=== PATIENT | female | born 1975 | race Caucasian/White ===

== ENCOUNTER → 2019-06-08 08:39 | Outpatient (CLI) | payer OTHER, MEDICAID, SELFPAY ==
--- NOTE | 2019-06-08 | DI.MRI.S_ITS ---
PROCEDURE: MR THORACIC SPINE WO CON INDICATIONS: THORACIC SPINE PAIN TECHNIQUE: Noncontrast sagittal T1 spine echo and T2 fast spin echo, sagittal STIR, axial T1 and T2 fast spin echo through the thoracic spine. COMPARISON: [facility], THORACIC SPINE 2 VIEWS, 10/15/2011, 13:07. FINDINGS: Image quality: Excellent. Alignment and Curvature: There is normal bony alignment. Bone Marrow: Marrow is of normal overall signal. A small intraosseous hemangioma is noted in T6. No acute vertebral body compression fractures. Spinal Cord: Visualized spinal cord is normal in size and signal. Paraspinous Soft Tissues: No paravertebral masses. Miscellaneous: On axial images, central canal and foramina appear widely patent at all scanned levels. IMPRESSION: Normal thoracic spine MRI exam. Dictated by: Paddy Rome M.D. on 06/08/2019 at 10:54 Approved by: Paddy Rome M.D. on 06/08/2019 at 17:14
== END ==
PROVIDERS: PCP Physician Assistant; Visit Provider Physician Assistant
DX: M54.6 Pain in thoracic spine (principal)
CPT/HCPCS: 72146

== ENCOUNTER → 2019-07-05 15:24 | Outpatient (CLI) | payer OTHER, MEDICAID, SELFPAY ==
--- NOTE | 2019-07-05 | DI.MG.S_ITS ---
BILATERAL DIGITAL SCREENING MAMMOGRAM 3D/2D WITH CAD: 07/05/2019 CLINICAL: Baseline exam. Routine screening. No prior exams were available for comparison. The tissue of both breasts is extremely dense, which lowers the sensitivity of mammography. Current study was also evaluated with a Computer Aided Detection (CAD) system. No significant masses, calcifications, or other findings are seen in either breast. IMPRESSION: NEGATIVE There is no mammographic evidence of malignancy. A 1 year screening mammogram is recommended. This exam was interpreted at Station ID: [id number]. NOTE: For mammograms, a report in lay terms will be sent to the patient. Approximately 15% of breast malignancies will not be visualized mammographically. In the management of a palpable breast mass, a negative mammogram must not discourage biopsy of a clinically suspicious lesion. Electronically Signed By: Edgard kennedy/ruth:07/05/2019 16:09:45 letter sent: Normal Exam ACR BI-RADS Category 1: Negative [id number]
== END ==
PROVIDERS: PCP Physician Assistant; Visit Provider Physician Assistant
DX: Z12.31 Encounter for screening mammogram for malignant neoplasm of breast (principal)
CPT/HCPCS: 77063; 77067

== ENCOUNTER 2020-01-06 11:15 | Outpatient (RCR) | payer OTHER, MEDICAID, SELFPAY ==
--- NOTE | 2019-10-20 17:16 | PT.OIE ---
Current Diagnoses Pain in thoracic spine (10/20/19) Past Medical History (Last Reviewed 07/02/19 @ 19:19 by Ever Flannery MD) Asthma (Chronic) Past Surgical History (Last Reviewed 07/02/19 @ 19:19 by Ever Flannery MD) History of third molar tooth extraction (Resolved) History of toe surgery (Resolved) Visit Care Team Role Provider Type Thelma Burton PA-C Attending Provider Advanced Prepress Operator Primary Care Provider Specialty: Internal Medicine Address: [address] [place] [address], [facility] Email: [email or web address] Initial Evaluation PT-OP-A Visit Information Start: 10/24/19 21:27 Freq: Status: Active Protocol: Document 10/20/19 10:30 [facility] (Rec: 10/24/19 21:29 [facility] [email or web address]) Out-Patient Physical Therapy Visit Information Visit Information Visit Type Initial Evaluation Visit Start Time 10:30 Visit Stop Time 11:15 Total Visit Minutes 45 Visit Number 1 Evaluation Information Evaluation Date 10/20/19 PT-OP-B Current Condition Start: 10/24/19 21:27 Freq: Status: Active Protocol: Document 10/20/19 10:30 [facility] (Rec: 10/26/19 09:38 [facility] [email or web address]) Current Condition History of Current Condition Onset Date 10 years Current Complaints left sided chronic thoracic pain History of Current Condition Alcira presents to PT with symptoms of left sided thoracic pain that has been ongoing for 10 years. Alcira reports 13 years ago she had a snowboarding accident in which her back extended backwards at the thoracic region and her rib cage was out of alignment. She saw chiropractic at that time and this corrected things. She is not sure if her chronic left sided thoracic pain is due to this. Alcira reports the pain changes in intensity but is there daily. She does chiropractic and massage and this helps a great deal but never fully gets rid of her pain. She has two children ages 2 and 4. She did have rib cage pain during her pregnancies. Alcira works out at [employer] and has a history of asthma which [facility] takes medication for. All other Past medical history is negative Prior Treatments and Tests A MRI has been taken of the thoracic spine and is negative Treatment Goals Patient/Caregiver Goals to reduce c/o thoracic pain and muscle tightness PT-OP-F Manual Assessment Start: 10/24/19 21:27 Freq: Status: Active Protocol: Document 10/20/19 10:30 [facility] (Rec: 10/26/19 09:38 [facility] [email or web address]) Manual Assessments Soft Tissue Assessment Soft Tissue Mobility Assessment tightness and decreased flexibility of the left quadratus lumborum, lumbar paraspinals L >R, left iliopsoas, piriformis, and quad tightness Joint Mobility Assessment Joint Mobility Assessment Left SI joint dysfunction PT-OP-J Posture/Palpation/Skin Start: 10/24/19 21:27 Freq: Status: Active Protocol: Document 10/20/19 10:30 [facility] (Rec: 10/26/19 09:38 [facility] [email or web address]) Palpation Assessment Location left PSIS Palpation Location tenderness left PSIS Palpation Findings Tenderness left quad Palpation Location left quad Palpation Findings Soft Tissue Tightness,Muscle Guarding left iliopsoas Palpation Location left iliopsoas Palpation Findings Soft Tissue Tightness,Spasm left QL Palpation Location left QL Palpation Findings Soft Tissue Tightness,Muscle Guarding PT-OP-K Range of Motion Start: 10/24/19 21:27 Freq: Status: Active Protocol: Document 10/20/19 10:30 [facility] (Rec: 10/26/19 09:38 [facility] [email or web address]) Lumbar Spine Range of Motion Lumbar Spine Active Flexion 60 Lateral Flexion Left 10 Lateral Flexion Right 15 ROM Limitations Soft Tissue Tightness Comments limited lumbar flexion due to c/p left sided tightness, has difficulty initiating lumbar flexion, decreased left sided sidebending due to muscle restrictions PT-OP-Q Treatments Start: 10/24/19 21:27 Freq: Status: Active Protocol: Document 10/20/19 10:30 [facility] (Rec: 10/26/19 09:38 [facility] [email or web address]) Therapeutic Exercises Other Exercises iliopsoas stretch in kiara test position Other Exercise Name iliopsoas stretch Side left Reps/Minutes hold 1-2 min cat cow and sidebends Other Exercise Name cat cow and sidebends Side bilateral Reps/Minutes x 10 each reddy pose Other Exercise Name reddy pose Side bilateral Reps/Minutes 1-2 min Comments center, left, and right PT-OP-T Assessment and Plan Start: 10/24/19 21:27 Freq: Status: Active Protocol: Document 10/20/19 10:30 [facility] (Rec: 10/26/19 09:38 [facility] [email or web address]) Physical Therapy Assessment Rehab Potential Rehabilitation Potential Excellent Evaluation Complexity Number of Personal Factors/Comorbidities 0 Number of Body Systems Impaired 1-2 Clinical Presentation at Evaluation Stable Impairments Impairments Functional Activities,Pain, Posture,ROM,Soft Tissue Mobility Goals Three Impairment Left sided thoracic pain that is constant in nature but varies in intensity Sorting Supervisor Goal (LTG) Alcira has a overall reduction in her thoracic pain levels with addition of a stretching program to her Home exercise program Two Impairment decreased thoracic and lumbar ROM [facility] Goal (LTG) Alcira demonstrated improved segmental spinal movement. She no longer has pain with lumbar flexion and sidebending One Impairment Tightness of the iliopsoas and quadratus lumborum on the left Short Term Goal (STG) Alcira is educated in a home flexibility program for the hips and spine to address areas of tightness that may be contributing to her pain STG Duration 4 weeks [facility] Goal (LTG) Alcira demonstrates improved flexibility of both the hip on the left and lateral quadratus lumborum musculature LTG Duration 8 weeks Assessment Summary Assessment Alcira presents to Physical therpay today with symptoms of chronic left sided thoracic spine pain that has been present for the past 10 years. She does report a snow boarding accident 13 years ago in which her thoracic spine was severly extended during her fall. She saw chiroproactic following this for rib cage pain and felt this corrected the symptoms. She is not sure if this caused any of her thoracic pain but mentions it today incase it has significance. Her recent MRI of the thoracic spine is normal. She has regular massage therapy and personal care aide and feels both of these help her but she is not able to fully eliminate her pain and it is with her daily. With evaluation today Alcira presents with tightness of the left sided iliopsoas, piriformis, and quadratus lumborum. She has difficulty with lumbar flexion and sidebending and is limited in her ROM with both of those movements. Her strength of her core is good with testing. She also c/o left SI pain that she feels is related to her thoracic pain. Treatment will focus on a stretching program especially for the iliopsoas due to the attachments on the spine close to where Alcira's pain is. She is a good candidate for PT . Physical Therapy Plan Frequency and Duration Frequency of Treatment 2x/Week Duration of Treatment 8 Plan of Care Start Date 10/20/19 Plan of Care End Date 12/15/19 Therapeutic Interventions Therapeutic Interventions Home Exercise Program,Manual Therapy,Neuromuscular Re- education,Patient/Caregiver Education,Self-Care/Home Management,Soft Tissue Mobilization,Therapeutic Exercises Next Visit Focus/Plan Next Note Type Treatment Note Next Visit Plan review stretches given last visit and begin working on segmental spinal flexion exercises
--- NOTE | 2019-10-27 12:33 | PT.OTN ---
Current Diagnoses Pain in thoracic spine (10/27/19) Physical Therapy Treatment Note PT-OP-A Visit Information Start: 10/24/19 21:27 Freq: Status: Active Protocol: Document 10/27/19 12:18 [facility] (Rec: 10/27/19 12:33 [facility] [email or web address]) Out-Patient Physical Therapy Visit Information Visit Information Visit Type Treatment Note Visit Start Time 10:30 Visit Stop Time 11:15 Total Visit Minutes 45 Visit Number 2 PT-OP-B Current Condition Start: 10/24/19 21:27 Freq: Status: Active Protocol: Document 10/20/19 10:30 [facility] (Rec: 10/26/19 09:38 [facility] [email or web address]) Current Condition History of Current Condition Onset Date 10 years Current Complaints left sided chronic thoracic pain History of Current Condition Alcira presents to PT with symptoms of left sided thoracic pain that has been ongoing for 10 years. Alcira reports 13 years ago she had a snowboarding accident in which her back extended backwards at the thoracic region and her rib cage was out of alignment. She saw chiropractic at that time and this corrected things. She is not sure if her chronic left sided thoracic pain is due to this. Alcira reports the pain changes in intensity but is there daily. She does chiropractic and massage and this helps a great deal but never fully gets rid of her pain. She has two children ages 2 and 4. She did have rib cage pain during her pregnancies. Alcira works out at [employer] and has a history of asthma which [facility] takes medication for. All other Past medical history is negative Prior Treatments and Tests A MRI has been taken of the thoracic spine and is negative Treatment Goals Patient/Caregiver Goals to reduce c/o thoracic pain and muscle tightness PT-OP-C Subjective Start: 10/24/19 21:27 Freq: Status: Active Protocol: Document 10/27/19 12:18 [facility] (Rec: 10/27/19 12:33 [facility] [email or web address]) OP-PT Subjective Patient Comments Patient Comments pt reports it is difficult to get in the stretches daily PT-OP-F Manual Assessment Start: 10/24/19 21:27 Freq: Status: Active Protocol: Document 10/20/19 10:30 [facility] (Rec: 10/26/19 09:38 [facility] [email or web address]) Manual Assessments Soft Tissue Assessment Soft Tissue Mobility Assessment tightness and decreased flexibility of the left quadratus lumborum, lumbar paraspinals L >R, left iliopsoas, piriformis, and quad tightness Joint Mobility Assessment Joint Mobility Assessment Left SI joint dysfunction PT-OP-J Posture/Palpation/Skin Start: 10/24/19 21:27 Freq: Status: Active Protocol: Document 10/20/19 10:30 [facility] (Rec: 10/26/19 09:38 [facility] [email or web address]) Palpation Assessment Location left PSIS Palpation Location tenderness left PSIS Palpation Findings Tenderness left quad Palpation Location left quad Palpation Findings Soft Tissue Tightness,Muscle Guarding left iliopsoas Palpation Location left iliopsoas Palpation Findings Soft Tissue Tightness,Spasm left QL Palpation Location left QL Palpation Findings Soft Tissue Tightness,Muscle Guarding PT-OP-K Range of Motion Start: 10/24/19 21:27 Freq: Status: Active Protocol: Document 10/20/19 10:30 [facility] (Rec: 10/26/19 09:38 [facility] [email or web address]) Lumbar Spine Range of Motion Lumbar Spine Active Flexion 60 Lateral Flexion Left 10 Lateral Flexion Right 15 ROM Limitations Soft Tissue Tightness Comments limited lumbar flexion due to c/p left sided tightness, has difficulty initiating lumbar flexion, decreased left sided sidebending due to muscle restrictions PT-OP-Q Treatments Start: 10/24/19 21:27 Freq: Status: Active Protocol: Document 10/27/19 12:18 [facility] (Rec: 10/27/19 12:33 [facility] [email or web address]) Therapeutic Exercises Supine Exercises 1 Supine Exercise Name foam roll stretch Comments full roll for vertical position and 1/2 roll for horizontal position Other Exercises quadruped thoracic rotations Other Exercise Name quadruped thoracic rotations Reps/Minutes x 5 each modified down dog Other Exercise Name hands on mat table press back into down dog lunge Other Exercise Name low lunge for deep iliopsoas stretch 1/2 kneeling iliopsoas stretch Other Exercise Name 1/2 kneeling iliopsoas stretch Comments arms lifted and then sidebend to opp side triangle pose Other Exercise Name yoga triangle pose Reps/Minutes hold 30 sec each side iliopsoas stretch in kiara test position Other Exercise Name iliopsoas stretch Side bilateral Reps/Minutes hold 3-4 min Comments with manual release of the quad on the left cat cow and sidebends Other Exercise Name cat cow and sidebends Side bilateral Reps/Minutes x 10 each reddy pose Other Exercise Name reddy pose Side bilateral Reps/Minutes 1-2 min Comments center, left, and right PT-OP-T Assessment and Plan Start: 10/24/19 21:27 Freq: Status: Active Protocol: Document 10/27/19 12:18 [facility] (Rec: 10/27/19 12:33 [facility] [email or web address]) Physical Therapy Assessment Assessment Summary Assessment good tolerance for all stretches today, Alcira feels a great deal of tightness on the left quad in kiara test position with manual quad release. I hung out in this position for a bit to get her a good relaxation of the quad and iliopsoas. She reports feeling looser following treatment today. Physical Therapy Plan Frequency and Duration Frequency of Treatment 2x/Week Duration of Treatment 8 Plan of Care Start Date 10/20/19 Plan of Care End Date 12/15/19 Therapeutic Interventions Therapeutic Interventions Home Exercise Program,Manual Therapy,Neuromuscular Re- education,Patient/Caregiver Education,Self-Care/Home Management,Soft Tissue Mobilization,Therapeutic Exercises Next Visit Focus/Plan Next Note Type Treatment Note Next Visit Plan review stretches given last visit and HEP. Work on segmental felxion and opening up the QL and iliopsoas on the left side
--- NOTE | 2019-11-02 10:30 | PT.OTN ---
Current Diagnoses Pain in thoracic spine (11/02/19) Physical Therapy Treatment Note PT-OP-A Visit Information Start: 10/24/19 21:27 Freq: Status: Active Protocol: Document 11/02/19 09:48 SP (Rec: 11/02/19 11:44 SP [id number]) Out-Patient Physical Therapy Visit Information Visit Information Visit Type Treatment Note Visit Start Time 09:48 Visit Stop Time 10:30 Total Visit Minutes 42 Visit Number 3 Number of INFORMATION SYSTEMS SECURITY ANALYST Visits 1 PT-OP-B Current Condition Start: 10/24/19 21:27 Freq: Status: Active Protocol: Document 10/20/19 10:30 [facility] (Rec: 10/26/19 09:38 [facility] [email or web address]) Current Condition History of Current Condition Onset Date 10 years Current Complaints left sided chronic thoracic pain History of Current Condition Alcira presents to PT with symptoms of left sided thoracic pain that has been ongoing for 10 years. Alcira reports 13 years ago she had a snowboarding accident in which her back extended backwards at the thoracic region and her rib cage was out of alignment. She saw chiropractic at that time and this corrected things. She is not sure if her chronic left sided thoracic pain is due to this. Alcira reports the pain changes in intensity but is there daily. She does chiropractic and massage and this helps a great deal but never fully gets rid of her pain. She has two children ages 2 and 4. She did have rib cage pain during her pregnancies. Alcira works out at [employer] and has a history of asthma which [facility] takes medication for. All other Past medical history is negative Prior Treatments and Tests A MRI has been taken of the thoracic spine and is negative Treatment Goals Patient/Caregiver Goals to reduce c/o thoracic pain and muscle tightness PT-OP-C Subjective Start: 10/24/19 21:27 Freq: Status: Active Protocol: Document 11/02/19 09:48 SP (Rec: 11/02/19 11:44 SP [id number]) OP-PT Subjective Patient Comments Patient Comments Pt stated is trying to incorporate stretches daily while her little kids are occupied. Pt stated her L SI little more discomforting today moderate and front of L hip tight. PT-OP-F Manual Assessment Start: 10/24/19 21:27 Freq: Status: Active Protocol: Document 10/20/19 10:30 [facility] (Rec: 10/26/19 09:38 [facility] [email or web address]) Manual Assessments Soft Tissue Assessment Soft Tissue Mobility Assessment tightness and decreased flexibility of the left quadratus lumborum, lumbar paraspinals L >R, left iliopsoas, piriformis, and quad tightness Joint Mobility Assessment Joint Mobility Assessment Left SI joint dysfunction PT-OP-J Posture/Palpation/Skin Start: 10/24/19 21:27 Freq: Status: Active Protocol: Document 10/20/19 10:30 [facility] (Rec: 10/26/19 09:38 [facility] [email or web address]) Palpation Assessment Location left PSIS Palpation Location tenderness left PSIS Palpation Findings Tenderness left quad Palpation Location left quad Palpation Findings Soft Tissue Tightness,Muscle Guarding left iliopsoas Palpation Location left iliopsoas Palpation Findings Soft Tissue Tightness,Spasm left QL Palpation Location left QL Palpation Findings Soft Tissue Tightness,Muscle Guarding PT-OP-K Range of Motion Start: 10/24/19 21:27 Freq: Status: Active Protocol: Document 10/20/19 10:30 [facility] (Rec: 10/26/19 09:38 [facility] [email or web address]) Lumbar Spine Range of Motion Lumbar Spine Active Flexion 60 Lateral Flexion Left 10 Lateral Flexion Right 15 ROM Limitations Soft Tissue Tightness Comments limited lumbar flexion due to c/p left sided tightness, has difficulty initiating lumbar flexion, decreased left sided sidebending due to muscle restrictions PT-OP-Q Treatments Start: 10/24/19 21:27 Freq: Status: Active Protocol: Document 11/02/19 09:48 SP (Rec: 11/02/19 11:44 SP [id number]) Therapeutic Exercises Supine Exercises pelvic realignment exercises Supine Exercise Name hip add, pelvic lift, HS press Side bilateral Resistance self manual Equipment Used small ball Reps/Minutes 3 sec x5 each Comments see hand out in chart, cued slow mod contraction with pelvic relaxation Other Exercises quadruped thoracic rotations Other Exercise Name quadruped thoracic rotations Reps/Minutes x 5 each modified down dog Other Exercise Name hands on mat table press back into down dog lunge Other Exercise Name low lunge for deep iliopsoas stretch 1/2 kneeling iliopsoas stretch Other Exercise Name 1/2 kneeling iliopsoas stretch Comments arms lifted and then sidebend to opp side triangle pose Other Exercise Name yoga triangle pose Reps/Minutes hold 30 sec each side iliopsoas stretch in kiara test position Other Exercise Name iliopsoas stretch (supine) Side bilateral Reps/Minutes hold 3-4 min Comments with manual release of the quad on the left cat cow and sidebends Other Exercise Name cat cow and sidebends Side bilateral Reps/Minutes x 10 each reddy pose Other Exercise Name reddy pose Side bilateral Reps/Minutes 1-2 min Comments center, left, and right PT-OP-T Assessment and Plan Start: 10/24/19 21:27 Freq: Status: Active Protocol: Document 11/02/19 09:48 SP (Rec: 11/02/19 11:44 SP [id number]) Physical Therapy Assessment Goals Three Impairment Left sided thoracic pain that is constant in nature but varies in intensity [facility] Goal (LTG) Alcria has a overall reduction in her thoracic pain levels with addition of a stretching program to her Home exercise program Two Impairment decreased thoracic and lumbar ROM One Impairment Tightness of the iliopsoas and quadratus lumborum on the left Short Term Goal (STG) Alcira is educated in a home flexibility program for the hips and spine to address areas of tightness that may be contributing to her pain STG Duration 4 weeks [facility] Goal (LTG) Alcira demonstrates improved flexibility of both the hip on the left and lateral quadratus lumborum musculature LTG Duration 8 weeks Assessment Summary Assessment Pt had good tolerance to manual and stretches today. Pt stated feels like wants to pop her L hip/pelvis to relieve pressure. INFORMATION SYSTEMS SECURITY ANALYST added pelvic realignment exercises to decrease L SI tension reported with positive feedback helped decrease L SI discomfort very low end of tx. Physical Therapy Plan Frequency and Duration Frequency of Treatment 2x/Week Duration of Treatment 8 Plan of Care Start Date 10/20/19 Plan of Care End Date 12/15/19 Therapeutic Interventions Therapeutic Interventions Home Exercise Program,Manual Therapy,Neuromuscular Re- education,Patient/Caregiver Education,Self-Care/Home Management,Soft Tissue Mobilization,Therapeutic Exercises Next Visit Focus/Plan Next Note Type Treatment Note Next Visit Plan Assess added pelvic realignment exercises last tx as HEP. review rolling. Continue per PT POC: Work on segmental flexion and opening up the QL and iliopsoas on the left side.
--- NOTE | 2019-11-16 13:45 | PT.OTN ---
Current Diagnoses Pain in thoracic spine (11/16/19) Physical Therapy Treatment Note PT-OP-A Visit Information Start: 10/24/19 21:27 Freq: Status: Active Protocol: Document 11/16/19 13:05 SP (Rec: 11/16/19 13:51 SP [id number]) Out-Patient Physical Therapy Visit Information Visit Information Visit Type Treatment Note Visit Start Time 13:05 Visit Stop Time 13:45 Total Visit Minutes 40 Visit Number 4 Number of CHICKEN RAISER Visits 2 PT-OP-B Current Condition Start: 10/24/19 21:27 Freq: Status: Active Protocol: Document 10/20/19 10:30 [facility] (Rec: 10/26/19 09:38 [facility] [email or web address]) Current Condition History of Current Condition Onset Date 10 years Current Complaints left sided chronic thoracic pain History of Current Condition Alcira presents to PT with symptoms of left sided thoracic pain that has been ongoing for 10 years. Alcira reports 13 years ago she had a snowboarding accident in which her back extended backwards at the thoracic region and her rib cage was out of alignment. She saw chiropractic at that time and this corrected things. She is not sure if her chronic left sided thoracic pain is due to this. Alcira reports the pain changes in intensity but is there daily. She does chiropractic and massage and this helps a great deal but never fully gets rid of her pain. She has two children ages 2 and 4. She did have rib cage pain during her pregnancies. Alcira works out at [employer] and has a history of asthma which [facility] takes medication for. All other Past medical history is negative Prior Treatments and Tests A MRI has been taken of the thoracic spine and is negative Treatment Goals Patient/Caregiver Goals to reduce c/o thoracic pain and muscle tightness PT-OP-C Subjective Start: 10/24/19 21:27 Freq: Status: Active Protocol: Document 11/16/19 13:05 SP (Rec: 11/16/19 13:51 SP [id number]) OP-PT Subjective Patient Comments Patient Comments Pt stated her R L5- S1 area on L pretty tight and 2-3/10 pain, saw chiropractor and adjusted pelvis and felt better but still experiencing P LBP. PT-OP-F Manual Assessment Start: 10/24/19 21:27 Freq: Status: Active Protocol: Document 10/20/19 10:30 [facility] (Rec: 10/26/19 09:38 [facility] [email or web address]) Manual Assessments Soft Tissue Assessment Soft Tissue Mobility Assessment tightness and decreased flexibility of the left quadratus lumborum, lumbar paraspinals L >R, left iliopsoas, piriformis, and quad tightness Joint Mobility Assessment Joint Mobility Assessment Left SI joint dysfunction PT-OP-J Posture/Palpation/Skin Start: 10/24/19 21:27 Freq: Status: Active Protocol: Document 10/20/19 10:30 [facility] (Rec: 10/26/19 09:38 [facility] [email or web address]) Palpation Assessment Location left PSIS Palpation Location tenderness left PSIS Palpation Findings Tenderness left quad Palpation Location left quad Palpation Findings Soft Tissue Tightness,Muscle Guarding left iliopsoas Palpation Location left iliopsoas Palpation Findings Soft Tissue Tightness,Spasm left QL Palpation Location left QL Palpation Findings Soft Tissue Tightness,Muscle Guarding PT-OP-K Range of Motion Start: 10/24/19 21:27 Freq: Status: Active Protocol: Document 10/20/19 10:30 [facility] (Rec: 10/26/19 09:38 [facility] [email or web address]) Lumbar Spine Range of Motion Lumbar Spine Active Flexion 60 Lateral Flexion Left 10 Lateral Flexion Right 15 ROM Limitations Soft Tissue Tightness Comments limited lumbar flexion due to c/p left sided tightness, has difficulty initiating lumbar flexion, decreased left sided sidebending due to muscle restrictions PT-OP-Q Treatments Start: 10/24/19 21:27 Freq: Status: Active Protocol: Document 11/16/19 13:05 SP (Rec: 11/16/19 13:51 SP [id number]) Therapeutic Exercises Supine Exercises Jagdish stretch Side left Reps/Minutes 30 x3 pelvic realignment exercises Supine Exercise Name hip add, pelvic lift, HS press Side bilateral Resistance self manual Equipment Used small ball Reps/Minutes 3 sec x5 each Comments see hand out in chart, cued slow mod contraction with pelvic relaxation Sitting Exercises QL Side left Reps/Minutes 30 x3 Other Exercises TS roll and ext foam roller Other Exercise Name supine floor Equipment Used foam roller Reps/Minutes 1 min tennis ball roll LS Other Exercise Name standing Equipment Used at wall, Reps/Minutes 1 min to tolerance Manual Therapy Treatment Soft Tissue Mobilization L QL, ES, Psoas Mobilization Type Cross-Friction,Myofascial Release,Sustained Pressure Intensity/Depth Moderate Comments sidelying ql, ES hooklying psoas PT-OP-T Assessment and Plan Start: 10/24/19 21:27 Freq: Status: Active Protocol: Document 11/16/19 13:05 SP (Rec: 11/16/19 13:51 SP [id number]) Physical Therapy Assessment Goals Three Impairment Left sided thoracic pain that is constant in nature but varies in intensity Alf Goal (LTG) Alcira has a overall reduction in her thoracic pain levels with addition of a stretching program to her Home exercise program Two Impairment decreased thoracic and lumbar ROM One Impairment Tightness of the iliopsoas and quadratus lumborum on the left Short Term Goal (STG) Alcira is educated in a home flexibility program for the hips and spine to address areas of tightness that may be contributing to her pain STG Duration 4 weeks Alf Goal (LTG) Alcira demonstrates improved flexibility of both the hip on the left and lateral quadratus lumborum musculature LTG Duration 8 weeks Assessment Summary Assessment Pt responded well to manual and instruction on self manual using tennis ball and foam roller for decreased R LB tension/pain. Pt stated alot looser when leaving, helpful tools. Physical Therapy Plan Frequency and Duration Frequency of Treatment 2x/Week Duration of Treatment 8 Plan of Care Start Date 10/20/19 Plan of Care End Date 12/15/19 Therapeutic Interventions Therapeutic Interventions Home Exercise Program,Manual Therapy,Neuromuscular Re- education,Patient/Caregiver Education,Self-Care/Home Management,Soft Tissue Mobilization,Therapeutic Exercises Next Visit Focus/Plan Next Note Type Treatment Note Next Visit Plan Assess manual and TS/ LS self tennis ball/foam roller STMs and flexibility. Continue per PT POC: Work on segmental flexion and opening up the QL and iliopsoas on the left side.
--- NOTE | 2019-11-23 14:57 | PT.OTN ---
Current Diagnoses Pain in thoracic spine (11/23/19) Physical Therapy Treatment Note PT-OP-A Visit Information Start: 10/24/19 21:27 Freq: Status: Active Protocol: Document 11/23/19 14:44 [facility] (Rec: 11/23/19 14:57 [facility] [email or web address]) Out-Patient Physical Therapy Visit Information Visit Information Visit Type Treatment Note Visit Start Time 09:45 Visit Stop Time 10:30 Total Visit Minutes 45 Visit Number 5 Number of PLATE STACKER HAND Visits 3 PT-OP-B Current Condition Start: 10/24/19 21:27 Freq: Status: Active Protocol: Document 10/20/19 10:30 [facility] (Rec: 10/26/19 09:38 [facility] [email or web address]) Current Condition History of Current Condition Onset Date 10 years Current Complaints left sided chronic thoracic pain History of Current Condition Alcira presents to PT with symptoms of left sided thoracic pain that has been ongoing for 10 years. Alcira reports 13 years ago she had a snowboarding accident in which her back extended backwards at the thoracic region and her rib cage was out of alignment. She saw chiropractic at that time and this corrected things. She is not sure if her chronic left sided thoracic pain is due to this. Alcira reports the pain changes in intensity but is there daily. She does chiropractic and massage and this helps a great deal but never fully gets rid of her pain. She has two children ages 2 and 4. She did have rib cage pain during her pregnancies. Alcira works out at [employer] and has a history of asthma which [facility] takes medication for. All other Past medical history is negative Prior Treatments and Tests A MRI has been taken of the thoracic spine and is negative Treatment Goals Patient/Caregiver Goals to reduce c/o thoracic pain and muscle tightness PT-OP-C Subjective Start: 10/24/19 21:27 Freq: Status: Active Protocol: Document 11/23/19 14:44 [facility] (Rec: 11/23/19 14:57 [facility] [email or web address]) OP-PT Subjective Patient Comments Patient Comments Alcira reports she is doing a little better overall. The thoracic spine pain is lessening . She is feeling symptoms mainly now in Left her SI joint and lower back region PT-OP-F Manual Assessment Start: 10/24/19 21:27 Freq: Status: Active Protocol: Document 10/20/19 10:30 [facility] (Rec: 10/26/19 09:38 [facility] [email or web address]) Manual Assessments Soft Tissue Assessment Soft Tissue Mobility Assessment tightness and decreased flexibility of the left quadratus lumborum, lumbar paraspinals L >R, left iliopsoas, piriformis, and quad tightness Joint Mobility Assessment Joint Mobility Assessment Left SI joint dysfunction PT-OP-J Posture/Palpation/Skin Start: 10/24/19 21:27 Freq: Status: Active Protocol: Document 10/20/19 10:30 [facility] (Rec: 10/26/19 09:38 [facility] [email or web address]) Palpation Assessment Location left PSIS Palpation Location tenderness left PSIS Palpation Findings Tenderness left quad Palpation Location left quad Palpation Findings Soft Tissue Tightness,Muscle Guarding left iliopsoas Palpation Location left iliopsoas Palpation Findings Soft Tissue Tightness,Spasm left QL Palpation Location left QL Palpation Findings Soft Tissue Tightness,Muscle Guarding PT-OP-K Range of Motion Start: 10/24/19 21:27 Freq: Status: Active Protocol: Document 10/20/19 10:30 [facility] (Rec: 10/26/19 09:38 [facility] [email or web address]) Lumbar Spine Range of Motion Lumbar Spine Active Flexion 60 Lateral Flexion Left 10 Lateral Flexion Right 15 ROM Limitations Soft Tissue Tightness Comments limited lumbar flexion due to c/p left sided tightness, has difficulty initiating lumbar flexion, decreased left sided sidebending due to muscle restrictions PT-OP-Q Treatments Start: 10/24/19 21:27 Freq: Status: Active Protocol: Document 11/23/19 14:44 [facility] (Rec: 11/23/19 14:57 [facility] [email or web address]) Therapeutic Exercises Supine Exercises Jagdish stretch Side left Reps/Minutes 30 x3 Comments with manaul release of the psoas pelvic realignment exercises Supine Exercise Name hip add, pelvic lift, HS press Side bilateral Resistance self manual Equipment Used small ball Reps/Minutes 3 sec x5 each Comments reviewed pelvic alignment ex Other Exercises quadruped thoracic rotations Other Exercise Name quadruped thoracic rotations Reps/Minutes x 5 each 1/2 kneeling iliopsoas stretch Other Exercise Name 1/2 kneeling iliopsoas stretch Comments arms lifted and then sidebend to opp side triangle pose Other Exercise Name yoga triangle pose Reps/Minutes hold 30 sec each side cat cow and sidebends Other Exercise Name cat cow and sidebends Side bilateral Reps/Minutes x 10 each reddy pose Other Exercise Name reddy pose Side bilateral Reps/Minutes 1-2 min Comments center, left, and right Manual Therapy Treatment Soft Tissue Mobilization L QL, ES, Psoas Mobilization Type Cross-Friction,Myofascial Release,Sustained Pressure Intensity/Depth Moderate Comments sidelying ql, ES hooklying psoas Joint Mobilizations 1 Joint sacral mobilizations into counter nutation Comments MET into sacral counter nutation Manual Techniques 1 Type posterior glides for the left hip Comments to help take pressure off the left side of the sacrum PT-OP-T Assessment and Plan Start: 10/24/19 21:27 Freq: Status: Active Protocol: Document 11/23/19 14:44 [facility] (Rec: 11/23/19 14:57 [facility] [email or web address]) Physical Therapy Assessment Assessment Summary Assessment pt is doing better overall and noting small changes in her pain levels. She is still much tighter left iliopsoas as compared to the right. Worked on releasing the psoas at the proximal attachments to the spine today Physical Therapy Plan Frequency and Duration Frequency of Treatment 2x/Week Duration of Treatment 8 Plan of Care Start Date 10/20/19 Plan of Care End Date 12/15/19 Therapeutic Interventions Therapeutic Interventions Home Exercise Program,Manual Therapy,Neuromuscular Re- education,Patient/Caregiver Education,Self-Care/Home Management,Soft Tissue Mobilization,Therapeutic Exercises Next Visit Focus/Plan Next Note Type Treatment Note Next Visit Plan continue working on segmental flexion, left sided muscular restrictions and balancing out the SI joint
--- NOTE | 2019-12-07 11:06 | PT.OTN ---
Current Diagnoses Pain in thoracic spine (12/07/19) Physical Therapy Treatment Note PT-OP-A Visit Information Start: 10/24/19 21:27 Freq: Status: Active Protocol: Document 12/07/19 10:51 [facility] (Rec: 12/07/19 11:05 [facility] [email or web address]) Out-Patient Physical Therapy Visit Information Visit Information Visit Type Treatment Note Visit Start Time 09:07 Visit Stop Time 10:30 Total Visit Minutes 38 Visit Number 6 Number of CUSTOMER SERVICE ADVOCATE Visits 0 PT-OP-B Current Condition Start: 10/24/19 21:27 Freq: Status: Active Protocol: Document 10/20/19 10:30 [facility] (Rec: 10/26/19 09:38 [facility] [email or web address]) Current Condition History of Current Condition Onset Date 10 years Current Complaints left sided chronic thoracic pain History of Current Condition Alcira presents to PT with symptoms of left sided thoracic pain that has been ongoing for 10 years. Alcira reports 13 years ago she had a snowboarding accident in which her back extended backwards at the thoracic region and her rib cage was out of alignment. She saw chiropractic at that time and this corrected things. She is not sure if her chronic left sided thoracic pain is due to this. Alcira reports the pain changes in intensity but is there daily. She does chiropractic and massage and this helps a great deal but never fully gets rid of her pain. She has two children ages 2 and 4. She did have rib cage pain during her pregnancies. Alcira works out at [employer] and has a history of asthma which [facility] takes medication for. All other Past medical history is negative Prior Treatments and Tests A MRI has been taken of the thoracic spine and is negative Treatment Goals Patient/Caregiver Goals to reduce c/o thoracic pain and muscle tightness PT-OP-C Subjective Start: 10/24/19 21:27 Freq: Status: Active Protocol: Document 12/07/19 10:51 [facility] (Rec: 12/07/19 11:05 [facility] [email or web address]) OP-PT Subjective Patient Comments Patient Comments Pt reports she drove to [place] in a different car than she was used to. She notes her left SI was really sore by the time she got there. She had a chiropractic adjustment and this really helped. She then fell really hard snow boarding and hurt her left shoulder and back. She is doing better but still sore in her shoulder. She feels that the stretching has maybe aggravated her left hip PT-OP-F Manual Assessment Start: 10/24/19 21:27 Freq: Status: Active Protocol: Document 10/20/19 10:30 [facility] (Rec: 10/26/19 09:38 [facility] [email or web address]) Manual Assessments Soft Tissue Assessment Soft Tissue Mobility Assessment tightness and decreased flexibility of the left quadratus lumborum, lumbar paraspinals L >R, left iliopsoas, piriformis, and quad tightness Joint Mobility Assessment Joint Mobility Assessment Left SI joint dysfunction PT-OP-J Posture/Palpation/Skin Start: 10/24/19 21:27 Freq: Status: Active Protocol: Document 10/20/19 10:30 [facility] (Rec: 10/26/19 09:38 [facility] [email or web address]) Palpation Assessment Location left PSIS Palpation Location tenderness left PSIS Palpation Findings Tenderness left quad Palpation Location left quad Palpation Findings Soft Tissue Tightness,Muscle Guarding left iliopsoas Palpation Location left iliopsoas Palpation Findings Soft Tissue Tightness,Spasm left QL Palpation Location left QL Palpation Findings Soft Tissue Tightness,Muscle Guarding PT-OP-K Range of Motion Start: 10/24/19 21:27 Freq: Status: Active Protocol: Document 10/20/19 10:30 [facility] (Rec: 10/26/19 09:38 [facility] [email or web address]) Lumbar Spine Range of Motion Lumbar Spine Active Flexion 60 Lateral Flexion Left 10 Lateral Flexion Right 15 ROM Limitations Soft Tissue Tightness Comments limited lumbar flexion due to c/p left sided tightness, has difficulty initiating lumbar flexion, decreased left sided sidebending due to muscle restrictions PT-OP-Q Treatments Start: 10/24/19 21:27 Freq: Status: Active Protocol: Document 12/07/19 10:51 [facility] (Rec: 12/07/19 11:05 [facility] [email or web address]) Therapeutic Exercises Supine Exercises 2 Supine Exercise Name supine foam roll stretch both vertical and horizontal Other Exercises 1 Other Exercise Name self thoracic mobilization with elbows on a 6 bench in quadruped Reps/Minutes x 8 reps quadruped thoracic rotations Other Exercise Name quadruped thoracic rotations Reps/Minutes x 5 each modified down dog Other Exercise Name hands on mat table press back into down dog triangle pose Other Exercise Name yoga triangle pose Reps/Minutes hold 30 sec each side cat cow and sidebends Other Exercise Name cat cow and sidebends Side bilateral Reps/Minutes x 10 each reddy pose Other Exercise Name reddy pose Side bilateral Reps/Minutes 1-2 min Comments center, left, and right Manual Therapy Treatment Soft Tissue Mobilization L QL, ES, Psoas Mobilization Type Cross-Friction,Myofascial Release,Sustained Pressure Intensity/Depth Moderate Comments sidelying ql, ES hooklying psoas PT-OP-T Assessment and Plan Start: 10/24/19 21:27 Freq: Status: Active Protocol: Document 12/07/19 10:51 [facility] (Rec: 12/07/19 11:05 [facility] [email or web address]) Physical Therapy Assessment Goals Three Impairment Left sided thoracic pain that is constant in nature but varies in intensity Residential Goal (LTG) Alcira has a overall reduction in her thoracic pain levels with addition of a stretching program to her Home exercise program SOME PROGRESS Two Impairment decreased thoracic and lumbar ROM Residential Goal (LTG) Alcira is working on a home stretching program and lumbar flexion is beginning to improve LTG Duration 8 weeks One Impairment Tightness of the iliopsoas and quadratus lumborum on the left Short Term Goal (STG) Alcira is educated in a home flexibility program for the hips and spine to address areas of tightness that may be contributing to her pain GOOD PROGRESS STG Duration 4 weeks Engineering Technician [employer]ing Goal (LTG) Alcira demonstrates improved flexibility of both the hip on the left and lateral quadratus lumborum musculature SOME PROGRESS LTG Duration 8 weeks Progress Towards Goals Progress Towards Goals Slow Progress - Other Progress Comments Alcira has been seen for 6 visits in PT. She is making progress but it has been slow. She has been working on her stretching program and feels things are a little bit better slowly. Assessment Summary Assessment As mentioned above Alcira is making slow progress with adding stretches into her routine. She was sore today as she recently drove to [place] and this aggravated her SI joint. She then took a bad fall snow boarding so had felt out of alignment again. She will be out of town and wont be back in for PT visits until December. Today we held off on any hip mobilizations and focused on spinal stretches and mobility. Discussed a SI belt for Alcira for long drives and encouraged pelvic floor isolation exercises. She would benefit from continued PT Physical Therapy Plan Frequency and Duration Frequency of Treatment 2x/Week Duration of Treatment 8 Plan of Care Start Date 12/07/19 Plan of Care End Date 02/01/20 Therapeutic Interventions Therapeutic Interventions Home Exercise Program,Manual Therapy,Neuromuscular Re- education,Patient/Caregiver Education,Self-Care/Home Management,Soft Tissue Mobilization,Therapeutic Exercises Next Visit Focus/Plan Next Note Type Treatment Note Next Visit Plan continue working on segmental flexion, left sided muscular restrictions and balancing out the SI joint
--- NOTE | 2019-12-07 11:06 | PT.OPPOC ---
Physical, Occupational & Speech Therapy At [facility] Current Diagnoses Pain in thoracic spine (12/07/19) Visit Care Team Role Provider Type Thelma Burton PA-C Attending Provider Advanced Sample Wrapper Primary Care Provider Specialty: Internal Medicine Address: [address] [place] [address], [id number] Email: [email or web address] Of Care PT-OP-T Assessment and Plan Start: 10/24/19 21:27 Freq: Status: Active Protocol: Document 12/07/19 10:51 [facility] (Rec: 12/07/19 11:05 [facility] [email or web address]) Physical Therapy Assessment Goals Three Impairment Left sided thoracic pain that is constant in nature but varies in intensity Usp Goal (LTG) Alcira has a overall reduction in her thoracic pain levels with addition of a stretching program to her Home exercise program SOME PROGRESS Two Impairment decreased thoracic and lumbar ROM Environmental Construction Engineer Goal (LTG) Alcira is working on a home stretching program and lumbar flexion is beginning to improve LTG Duration 8 weeks One Impairment Tightness of the iliopsoas and quadratus lumborum on the left Short Term Goal (STG) Alciar is educated in a home flexibility program for the hips and spine to address areas of tightness that may be contributing to her pain GOOD PROGRESS STG Duration 4 weeks Environmental Construction Engineer Goal (LTG) Alcira demonstrates improved flexibility of both the hip on the left and lateral quadratus lumborum musculature SOME PROGRESS LTG Duration 8 weeks Progress Towards Goals Progress Towards Goals Slow Progress - Other Progress Comments Alcira has been seen for 6 visits in PT. She is making progress but it has been slow. She has been working on her stretching program and feels things are a little bit better slowly. Assessment Summary Assessment As mentioned above Alcira is making slow progress with adding stretches into her routine. She was sore today as she recently drove to [place] and this aggravated her SI joint. She then took a bad fall snow boarding so had felt out of alignment again. She will be out of town and wont be back in for PT visits until December. Today we held off on any hip mobilizations and focused on spinal stretches and mobility. Discussed a SI belt for Alcira for long drives and encouraged pelvic floor isolation exercises. She would benefit from continued PT Physical Therapy Plan Frequency and Duration Frequency of Treatment 2x/Week Duration of Treatment 8 Plan of Care Start Date 12/07/19 Plan of Care End Date 02/01/20 Therapeutic Interventions Therapeutic Interventions Home Exercise Program,Manual Therapy,Neuromuscular Re- education,Patient/Caregiver Education,Self-Care/Home Management,Soft Tissue Mobilization,Therapeutic Exercises Next Visit Focus/Plan Next Note Type Treatment Note Next Visit Plan continue working on segmental flexion, left sided muscular restrictions and balancing out the SI joint Plan of Care Dates Plan of Care Start Date 12/07/19 Plan of Care End Date 02/01/20 Electronically Signed by: Dannielle Ulloa, PT 12/07/19 2949 Please Sign and Return: I have reviewed this Plan of Care and certify that the skilled therapy services above are required to meet the patient?s needs. Physician Signature Date Printed Name and Credentials Clinical Instructor Signature Printed Name and Credentials
--- NOTE | 2019-12-13 11:30 | PT.OTN ---
Current Diagnoses Pain in thoracic spine (12/13/19) Physical Therapy Treatment Note PT-OP-A Visit Information Start: 10/24/19 21:27 Freq: Status: Active Protocol: Document 12/13/19 09:54 SP (Rec: 12/13/19 11:41 SP [id number]) Out-Patient Physical Therapy Visit Information Visit Information Visit Type Treatment Note Visit Note Student observe and perform manual under supervision of GLUCOSE AND SYRUP WEIGHER. Visit Start Time 09:54 Visit Stop Time 10:30 Total Visit Minutes 36 Visit Number 7 Number of GLUCOSE AND SYRUP WEIGHER Visits 1 PT-OP-B Current Condition Start: 10/24/19 21:27 Freq: Status: Active Protocol: Document 10/20/19 10:30 [facility] (Rec: 10/26/19 09:38 [facility] [email or web address]) Current Condition History of Current Condition Onset Date 10 years Current Complaints left sided chronic thoracic pain History of Current Condition Alcira presents to PT with symptoms of left sided thoracic pain that has been ongoing for 10 years. Alcira reports 13 years ago she had a snowboarding accident in which her back extended backwards at the thoracic region and her rib cage was out of alignment. She saw chiropractic at that time and this corrected things. She is not sure if her chronic left sided thoracic pain is due to this. Alcira reports the pain changes in intensity but is there daily. She does chiropractic and massage and this helps a great deal but never fully gets rid of her pain. She has two children ages 2 and 4. She did have rib cage pain during her pregnancies. Alcira works out at [employer] and has a history of asthma which [facility] takes medication for. All other Past medical history is negative Prior Treatments and Tests A MRI has been taken of the thoracic spine and is negative Treatment Goals Patient/Caregiver Goals to reduce c/o thoracic pain and muscle tightness PT-OP-C Subjective Start: 10/24/19 21:27 Freq: Status: Active Protocol: Document 12/13/19 09:54 SP (Rec: 12/13/19 11:41 SP [id number]) OP-PT Subjective Patient Comments Patient Comments Alcira reported thoracic pain 3 /10 pre PT. PT-OP-F Manual Assessment Start: 10/24/19 21:27 Freq: Status: Active Protocol: Document 10/20/19 10:30 [facility] (Rec: 12/10/19 09:38 [facility] [email or web address]) Manual Assessments Soft Tissue Assessment Soft Tissue Mobility Assessment tightness and decreased flexibility of the left quadratus lumborum, lumbar paraspinals L >R, left iliopsoas, piriformis, and quad tightness Joint Mobility Assessment Joint Mobility Assessment Left SI joint dysfunction PT-OP-J Posture/Palpation/Skin Start: 10/24/19 21:27 Freq: Status: Active Protocol: Document 10/20/19 10:30 [facility] (Rec: 10/26/19 09:38 [facility] [email or web address]) Palpation Assessment Location left PSIS Palpation Location tenderness left PSIS Palpation Findings Tenderness left quad Palpation Location left quad Palpation Findings Soft Tissue Tightness,Muscle Guarding left iliopsoas Palpation Location left iliopsoas Palpation Findings Soft Tissue Tightness,Spasm left QL Palpation Location left QL Palpation Findings Soft Tissue Tightness,Muscle Guarding PT-OP-K Range of Motion Start: 10/24/19 21:27 Freq: Status: Active Protocol: Document 10/20/19 10:30 [facility] (Rec: 10/26/19 09:38 [facility] [email or web address]) Lumbar Spine Range of Motion Lumbar Spine Active Flexion 60 Lateral Flexion Left 10 Lateral Flexion Right 15 ROM Limitations Soft Tissue Tightness Comments limited lumbar flexion due to c/p left sided tightness, has difficulty initiating lumbar flexion, decreased left sided sidebending due to muscle restrictions PT-OP-Q Treatments Start: 10/24/19 21:27 Freq: Status: Active Protocol: Document 12/13/19 09:54 SP (Rec: 12/13/19 11:41 SP [id number]) Therapeutic Exercises Supine Exercises Jagdish stretch Side left Equipment Used strap Reps/Minutes 30 x3 Comments with manaul release of the psoas Other Exercises TS roll and ext foam roller Other Exercise Name supine floor Equipment Used foam roller Reps/Minutes 1 min quadruped thoracic rotations Other Exercise Name quadruped thoracic rotations Reps/Minutes x 5 each modified down dog Other Exercise Name hands on mat table press back into down dog reddy pose Other Exercise Name reddy pose Side bilateral Reps/Minutes 1-2 min Comments center, left, and right Manual Therapy Treatment Soft Tissue Mobilization L QL, ES, Psoas Mobilization Type Cross-Friction,Myofascial Release,Sustained Pressure Intensity/Depth Moderate Body Position Hooklying Comments sidelying ql, ES, paraspinal LS/SI, hooklying psoas Taping SI compression Body Location L5 -S1 X Treatment Focus decrease tightness and support mobility Type of Tape Kinesio Tape Skin Inspection normal color/texture Comments good tolerance, educated on adverse reactions: skin irritation, redness, tingling remove other allison wear 3-5 days (assimulate pelvic belt looking for). PT-OP-T Assessment and Plan Start: 10/24/19 21:27 Freq: Status: Active Protocol: Document 12/13/19 09:54 SP (Rec: 12/13/19 11:41 SP [id number]) Physical Therapy Assessment Goals Three Impairment Left sided thoracic pain that is constant in nature but varies in intensity [facility] Goal (LTG) Alcira has a overall reduction in her thoracic pain levels with addition of a stretching program to her Home exercise program SOME PROGRESS Two Impairment decreased thoracic and lumbar ROM Pattern Repair Person Goal (LTG) Alcira is working on a home stretching program and lumbar flexion is beginning to improve LTG Duration 8 weeks One Impairment Tightness of the iliopsoas and quadratus lumborum on the left Short Term Goal (STG) Alcira is educated in a home flexibility program for the hips and spine to address areas of tightness that may be contributing to her pain GOOD PROGRESS STG Duration 4 weeks Pattern Repair Person Goal (LTG) Alcira demonstrates improved flexibility of both the hip on the left and lateral quadratus lumborum musculature SOME PROGRESS LTG Duration 8 weeks Assessment Summary Assessment Tx focused on decreased reported tightness L LS, SI area. Tolerated manual QL, Paraspinal, psoas, glut med/ min GLUCOSE AND SYRUP WEIGHER and student assess, palpate and perform. Applied K taping for SI compression support to assimulate pelvic belt look for per PT recommendation with positive feedback feels like holding area more, helpful. Reviewed HEP see ther ex. Physical Therapy Plan Frequency and Duration Frequency of Treatment 2x/Week Duration of Treatment 8 Plan of Care Start Date 12/07/19 Plan of Care End Date 02/01/20 Therapeutic Interventions Therapeutic Interventions Home Exercise Program,Manual Therapy,Neuromuscular Re- education,Patient/Caregiver Education,Self-Care/Home Management,Soft Tissue Mobilization,Therapeutic Exercises Next Visit Focus/Plan Next Note Type Treatment Note Next Visit Plan Assess tolerance to K taping X SI area and review HEP. continue working on segmental flexion, left sided muscular restrictions and balancing out the SI joint
--- NOTE | 2020-01-06 17:04 | PT.OTN ---
Current Diagnoses Pain in thoracic spine (01/06/20) Physical Therapy Treatment Note PT-OP-A Visit Information Start: 10/24/19 21:27 Freq: Status: Active Protocol: Document 01/06/20 16:50 [facility] (Rec: 01/06/20 17:04 [facility] [email or web address]) Out-Patient Physical Therapy Visit Information Visit Information Visit Type Treatment Note Visit Start Time 11:15 Visit Stop Time 12:00 Total Visit Minutes 45 Visit Number 8 Number of DIET CONSULTANT Visits 0 PT-OP-B Current Condition Start: 10/24/19 21:27 Freq: Status: Active Protocol: Document 10/20/19 10:30 [facility] (Rec: 10/26/19 09:38 [facility] [email or web address]) Current Condition History of Current Condition Onset Date 10 years Current Complaints left sided chronic thoracic pain History of Current Condition Alcira presents to PT with symptoms of left sided thoracic pain that has been ongoing for 10 years. Alcira reports 13 years ago she had a snowboarding accident in which her back extended backwards at the thoracic region and her rib cage was out of alignment. She saw chiropractic at that time and this corrected things. She is not sure if her chronic left sided thoracic pain is due to this. Alcira reports the pain changes in intensity but is there daily. She does chiropractic and massage and this helps a great deal but never fully gets rid of her pain. She has two children ages 2 and 4. She did have rib cage pain during her pregnancies. Alcira works out at [employer] and has a history of asthma which [facility] takes medication [facility]. All other Past medical history is negative Prior Treatments and Tests A MRI has been taken of the thoracic spine and is negative Treatment Goals Patient/Caregiver Goals to reduce c/o thoracic pain and muscle tightness PT-OP-C Subjective Start: 10/24/19 21:27 Freq: Status: Active Protocol: Document 01/06/20 16:50 [facility] (Rec: 01/06/20 17:04 [facility] [email or web address]) OP-PT Subjective Patient Comments Patient Comments pt reports her pain is decreased overall to 3/10 but still present. She is working on all her stretches and SI stabilization PT-OP-F Manual Assessment Start: 10/24/19 21:27 Freq: Status: Active Protocol: Document 10/20/19 10:30 [facility] (Rec: 10/26/19 09:38 [facility] [email or web address]) Manual Assessments Soft Tissue Assessment Soft Tissue Mobility Assessment tightness and decreased flexibility of the left quadratus lumborum, lumbar paraspinals L >R, left iliopsoas, piriformis, and quad tightness Joint Mobility Assessment Joint Mobility Assessment Left SI joint dysfunction PT-OP-J Posture/Palpation/Skin Start: 10/24/19 21:27 Freq: Status: Active Protocol: Document 10/20/19 10:30 [facility] (Rec: 10/26/19 09:38 [facility] [email or web address]) Palpation Assessment Location left PSIS Palpation Location tenderness left PSIS Palpation Findings Tenderness left quad Palpation Location left quad Palpation Findings Soft Tissue Tightness,Muscle Guarding left iliopsoas Palpation Location left iliopsoas Palpation Findings Soft Tissue Tightness,Spasm left QL Palpation Location left QL Palpation Findings Soft Tissue Tightness,Muscle Guarding PT-OP-K Range of Motion Start: 10/24/19 21:27 Freq: Status: Active Protocol: Document 10/20/19 10:30 [facility] (Rec: 10/26/19 09:38 [facility] [email or web address]) Lumbar Spine Range of Motion Lumbar Spine Active Flexion 60 Lateral Flexion Left 10 Lateral Flexion Right 15 ROM Limitations Soft Tissue Tightness Comments limited lumbar flexion due to c/p left sided tightness, has difficulty initiating lumbar flexion, decreased left sided sidebending due to muscle restrictions PT-OP-Q Treatments Start: 10/24/19 21:27 Freq: Status: Active Protocol: Document 01/06/20 16:50 [facility] (Rec: 01/06/20 17:04 [facility] [email or web address]) Therapeutic Exercises Supine Exercises 1 Supine Exercise Name foam roll stretch Comments full roll for vertical position and 1/2 roll for horizontal position Other Exercises rock backs with elbow in 6 step for thoracic mobilization Other Exercise Name rock back with elbows on 6 step for thoracic mobilization Reps/Minutes x 10 reps quadruped thoracic rotations Other Exercise Name quadruped thoracic rotations Reps/Minutes x 5 each cat cow and sidebends Other Exercise Name cat cow and sidebends Side bilateral Reps/Minutes x 10 each reddy pose Other Exercise Name reddy pose Side bilateral Reps/Minutes 1-2 min Comments center, left, and right Manual Therapy Treatment Soft Tissue Mobilization L QL, ES, Psoas Mobilization Type Cross-Friction,Myofascial Release,Sustained Pressure Intensity/Depth Moderate Body Position Hooklying Comments sidelying ql, ES, paraspinal LS/SI, hooklying psoas Joint Mobilizations 1 Joint PA mobs thoracic spine Direction PA Grade II Body Position right side Manual Techniques 1 Type manual Quadratus lumborum release Comments in right sidelying for the left pelvis PT-OP-T Assessment and Plan Start: 10/24/19 21:27 Freq: Status: Active Protocol: Document 01/06/20 16:50 [facility] (Rec: 01/06/20 17:04 [facility] [email or web address]) Physical Therapy Assessment Goals Three Impairment Left sided thoracic pain that is constant in nature but varies in intensity [facility] Goal (LTG) Alcira has a overall reduction in her thoracic pain levels with addition of a stretching program to her Home exercise program GOOD progress pain is staying around a 3 now Two Impairment decreased thoracic and lumbar ROM Jig Filler Goal (LTG) Alcira is working on a home stretching program and lumbar flexion is beginning to improve GOOD Progress with improved spinal flexion overall One Impairment Tightness of the iliopsoas and quadratus lumborum on the left Short Term Goal (STG) Alcira is educated in a home flexibility program for the hips and spine to address areas of tightness that may be contributing to her pain GOAL met STG Duration 4 weeks [facility] Goal (LTG) Alcira demonstrates improved flexibility of both the hip on the left and lateral quadratus lumborum musculature GOAL MET LTG Duration 8 weeks Assessment Summary Assessment Improved lumbar spine mobility today, still feeling pain 3/ 10. This was Alcira's last scheduled visit. She will continue working on her stretches and follow up with her MD if she feels she needs additional visits. At this point she will be discharged from PT Physical Therapy Plan Discharge Physical Therapy Discharge Reasons Plateau in Progress Discharge Comments DC PT at this time to a independent home exercise program
== END 2020-01-11 08:39 ==
LOC: PHYS 11:15
PROVIDERS: PCP Physician Assistant; Visit Provider Physician Assistant
DX: M54.6 Pain in thoracic spine (principal)
CPT/HCPCS: 97110; 97140; 97161

== ENCOUNTER → 2021-08-22 18:14 | Outpatient (CLI) | payer OTHER, MEDICAID, SELFPAY ==
--- NOTE | 2021-08-22 18:16 | DI.MG.S_ITS ---
BILATERAL DIGITAL SCREENING MAMMOGRAM 3D/2D WITH CAD: 08/22/2021 CLINICAL: Routine screening. Comparison is made to exam dated: 07/05/2019 [facility]. The tissue of both breasts is extremely dense, which lowers the sensitivity of mammography. Current study was also evaluated with a Computer Aided Detection (CAD) system. No significant masses, calcifications, or other findings are seen in either breast. There has been no significant interval change. IMPRESSION: NEGATIVE There is no mammographic evidence of malignancy. A 1 year screening mammogram is recommended. This exam was interpreted at Station ID: [id number]. NOTE: For mammograms, a report in lay terms will be sent to the patient. Approximately 15% of breast malignancies will not be visualized mammographically. In the management of a palpable breast mass, a negative mammogram must not discourage biopsy of a clinically suspicious lesion. Electronically Signed By: Guanako suazo/ruth:08/23/2021 09:26:52 letter sent: Normal Exam ACR BI-RADS Category 1: Negative [id number]
== END ==
PROVIDERS: PCP Registered Nurse Diabetes Educator; Referring Provider Registered Nurse Diabetes Educator; Visit Provider Registered Nurse Diabetes Educator
DX: Z12.31 Encounter for screening mammogram for malignant neoplasm of breast (principal)
CPT/HCPCS: 77063; 77067

== ENCOUNTER 2021-09-28 14:37 | Emergency (ER) | payer OTHER, MEDICAID, SELFPAY ==
[2021-09-28 14:55] VITALS: BP 111/66; PULSE 104; RESP 20; TEMP 37.6; O2SAT 98; BMI 20.5
--- NOTE | 2021-09-28 15:02 | DI.RAD.S_ITS ---
PROCEDURE: XR CHEST 2V INDICATIONS: COVID + SOB TECHNIQUE: 2 views of the chest were acquired. COMPARISON: [facility], , CHEST 2 VIEW, 10/15/2011, 13:03. FINDINGS: Surgical changes and devices: None. Lungs and pleura: There is a reticulonodular process which has developed in the right upper lobe, not previously present. Also, a nodular opacity has developed in the medial extreme left lung base. No pleural effusions or pneumothorax. Mediastinum: Mediastinal contours are normal. Heart size is normal. Bones and chest wall: No suspicious bony abnormalities. Soft tissues appear unremarkable. IMPRESSION: Interval development of reticulonodular process in the right upper lobe. Interval development of a nodular opacity in the extreme left lung base medially. Comment: Recommend CT chest with contrast for further evaluation. Dictated by: Geovany Espinosa M.D. on 09/28/2021 at 15:42 Approved by: Geovany Espinosa M.D. on 09/28/2021 at 15:44
[2021-09-28 15:36] LABS: COVID19 -Nasal RAPID POSITIVE (Negative)
[2021-09-28 15:51] VITALS: PULSE 96; O2SAT 97
[2021-09-28 16:00] VITALS: BP 118/79; PULSE 94; O2SAT 96
[2021-09-28] MEDS: KETOROLAC 30 MG/ML VIAL 15 MG IV (16:00)
[2021-09-28] MEDS: SODIUM CHLORIDE 0.9% 1,000 ML 250 ML IV (16:00)
[2021-09-28] MEDS: ONDANSETRON 4 MG/2 ML INJ IV (16:00)
[2021-09-28] MEDS: ALBUTEROL HFA MDI 60 PUFF/8 GM INHALER INH (16:16)
[2021-09-28 16:18] VITALS: PULSE 104; RESP 18; O2SAT 98
[2021-09-28 16:30] VITALS: BP 119/70; PULSE 97; O2SAT 99
--- NOTE | 2021-09-28 16:33 | DI.CT.S_ITS ---
PROCEDURE: CT CHEST ABD PEL W CON INDICATIONS: Abnormality on CXR TECHNIQUE: After the administration of intravenous contrast, 5 mm thick sections acquired from the lung apices to the symphysis. 5 mm coronal and sagittal reformats were performed, with additional 7 mm MIP reformats through the lungs. For radiation dose reduction, the following was used: automated exposure control, adjustment of mA and/or kV according to patient size. COMPARISON: [facility], CR, XR CHEST 2V, 09/28/2021, 15:05. FINDINGS: Image quality: Excellent. CHEST: Lungs and pleura: Reticular nodular densities are noted in posterior and lateral aspect of right upper lobe with soft tissue density nodules measures up to 3 mm in size in lateral right upper lobe near apex series 3, image 73, 8 mm in size in central right upper lobe series 3, image 92 , 6 mm in size in posterior right upper lobe series 3, image 93, and 8 mm in size in posterior and inferior aspect of right upper lobe series 3, image 119. Ill-defined ground-glass opacities and airspace opacities are seen scattered in bilateral lower lobes. No pleural effusions or pneumothorax. Central and peripheral airways appear patent . Mild bronchiectasis in right upper lobe and bilateral lower lobes are seen. Mediastinum: Heart size is normal. No pericardial effusion. Enlarged mediastinal and hilar lymph nodes are seen and measures up to 1.1 cm in short axis diameter in right hilar region series 2, image 27. Thoracic aorta and central pulmonary arteries are normal in size. Esophagus is normal in caliber. No hiatal hernia. Chest wall: No axillary or supraclavicular adenopathy by size criteria. Thyroid gland is within normal limits. ABDOMEN: Solid organs: Liver is normal in size and enhancement. Gallbladder is within normal limits.. Biliary system is non dilated. Pancreas enhances normally. Spleen is normal in size and enhancement. No adrenal nodules. Kidneys demonstrate normal size and enhancement, without hydronephrosis. Peritoneum and bowel: Bowel loops demonstrate normal wall thickness and caliber. No free fluid or air. Appendix is visualized and is within normal limits. Mild sigmoid diverticulosis is seen, no CT evidence of acute diverticulitis. Nodes and vessels: No retroperitoneal or mesenteric adenopathy by size criteria. Aorta and inferior vena cava are normal in size. Miscellaneous: No ventral hernias. PELVIS: Genitourinary: Bladder wall thickness is normal. Uterus is within normal limits. Multiple right ovarian cysts are seen measures up to 1.8 x 1.8 cm in size series 2, image 110. There is a slightly lobulated and fairly homogeneously hyperdense structure seen in left adnexa and measures 4 x 4.3 x 3.8 cm in size series 2 image 112 and series 5, image 29 . Miscellaneous: No inguinal hernias or adenopathy. Bones: No suspicious bony lesions. No vertebral body compression fractures. IMPRESSION: 1. Patchy ground-glass opacities and airspace opacity seen in posterior and lateral periphery of bilateral lower lobes more prominent in left lower lobe which likely represent multilobar infiltrates from COVID-19 infection. 2. Reticular nodular densities are noted in posterior and lateral aspect of right upper lobe as described in detail above. Finding may represent early developing infiltrates secondary to COVID-19 infection. Superimposed pulmonary nodule or mass cannot be entirely excluded. Follow-up until resolution is recommended. 3. Mild bronchiectasis in right upper lobe and bilateral lower lobes. No pleural effusion or pneumothorax. 4. Enlarged mediastinal and hilar lymph nodes as above suggestive of reactive inflammatory lymphadenopathy. No abdominal or pelvic lymphadenopathy. 5. 4.3 x 4 x 3.8 cm hyperdense structure in left adnexa as described above. Finding could represent a exophytic large left uterine fibroid, neoplasm of left ovarian origin cannot be excluded. Suggestion of right renal cysts as above. 6. No bowel obstruction or abnormal bowel wall thickening. Normal appendix. Colonic diverticulosis without evidence of acute diverticulitis. No free fluid or free air. Dictated by: Adrián Toro M.D. on 09/28/2021 at 17:58 Approved by: Adrián Toro M.D. on 09/28/2021 at 18:07
--- NOTE | 2021-09-28 16:51 | ED.URI ---
HPI - URI/Sore Throat <Oscar Ding PA-C - Last Filed: 09/28/21 19:38> General Chief Complaint: Upper Respiratory Symptoms Stated Complaint: COVID+/Trouble Breathing Time Seen by Provider: 09/28/21 15:59 Source: patient Mode of arrival: Ambulatory Limitations: no limitations History of Present Illness HPI Narrative: Patient is a 46-year-old female with a history of asthma presenting to the emergency department today for evaluation of worsening cold symptoms. Patient states that she was diagnosed with COVID-19 approximately 6 days ago. Patient states that she has had worsening chest pain, shortness of breath, cough, headache, general myalgias, nausea, diarrhea and nonbloody vomiting for the last 3 days. Of note, patient states she received the full [employer] vaccine approximately 2 months ago and denies any recent booster injections. Patient denies dysuria, constipation, numbness and tingling in the lower extremities, hemoptysis, rash. No other concerns voiced at this time. Related Data Home Medications Medication Instructions Recorded Confirmed loratadine 10 mg tablet (Claritin) 10 mg PO DAILY 03/02/19 01/10/21 clobetasol 0.05 % topical cream 1 applictn TOP DAILY PRN 06/01/20 01/10/21 Previous Rx's Medication Instructions Recorded zolpidem 5 mg tablet (Ambien) 5 mg PO BEDTIME PRN #30 tab 09/06/20 Ventolin HFA 90 mcg/actuation 2 puff INHALATION Q4-6H PRN #36 01/10/21 aerosol inhaler (albuterol sulfate) gram NS budesonide-formoterol HFA 160 2 puff INHALATION BID #10.2 g 01/10/21 mcg-4.5 mcg/actuation aerosol inhaler (Symbicort) montelukast 10 mg tablet 10 mg PO BEDTIME #30 tab 01/10/21 nystatin 100,000 unit/mL oral 5 ml PO BID 28 Days #280 ml 01/10/21 suspension cyclobenzaprine 5 mg tablet 5 mg PO TID PRN #30 tab 09/06/21 ondansetron HCl 4 mg tablet 4 mg PO Q8H PRN #30 tab 09/28/21 (Zofran) Allergies Allergy/AdvReac Type Severity Reaction Status Date / Time No Known Drug Allergies Allergy Verified 09/28/21 14:55 Review of Systems <Oscar Ding PA-C - Last Filed: 09/28/21 19:38> Constitutional Constitutional: Reports chills, Reports fever(s), Denies frequent falls, Denies lethargy and Denies weakness ENT Ears, Nose, Mouth, and Throat: Denies change in voice, Denies dizziness, Denies neck pain and Denies sore throat Cardiovascular Cardiovascular: Reports chest pain, Denies irregular heart rhythm, Denies lightheadedness, Denies palpitations, Reports dyspnea, Reports dyspnea on exertion and Reports orthopnea Respiratory Respiratory: Reports cough, Reports dyspnea, Reports dyspnea on exertion and Denies wheezing Gastrointestinal Gastrointestinal: Reports abdominal pain, Denies melena, Denies hematochezia, Denies change in bowel habits, Denies coffee ground emesis, Reports diarrhea, Reports nausea, Reports vomiting and Denies hematemesis Genitourinary Genitourinary: Denies dysuria Musculoskeletal Musculoskeletal: Denies neck pain and Denies numbness Integumentary/Breasts Skin/Breast: Denies pruritus, Denies erythema, Denies rash and Denies wounds Neurologic Neurologic: Denies behavioral changes, Denies confusion, Denies dizziness, Denies frequent falls, Denies numbness and Denies weakness Psychiatric Psychiatric: Denies behavioral changes and Denies confusion Endocrine Endocrine: Denies palpitations Allergic/Immunologic Allergic/Immunologic: Denies wheezing Patient History <Oscar Ding PA-C - Last Filed: 09/28/21 19:38> Medical History Asthma Chronic mid back pain Encounter for routine gynecological examination with Papanicolaou smear of cervix (12/22/20) Esophageal polyp Moderate persistent asthma Surgical History History of third molar tooth extraction History of toe surgery Social History Smoking Status: Never smoker Smoking Status: Never smoker Substance Use Type: does not use Exam <Oscar Ding PA-C - Last Filed: 09/28/21 19:38> Narrative Exam Narrative: GENERAL: 46 year old patient appears stated age. Well-developed patient, in mild distress. HEAD: Atraumatic. Normocephalic. EYES: Pupils equal round and reactive. Extraocular motions intact. No scleral icterus. No injection or drainage. ENT: Nose without bleeding, purulent drainage. Throat without erythema, tonsillar hypertrophy or exudate. Airway patent. NECK: Trachea midline. Non tender CARDIOVASCULAR: Tachycardic but regular rhythm without murmurs, gallops, or rubs. RESPIRATORY: Clear to auscultation. Breath sounds equal bilaterally. No wheezes, rales, or rhonchi. GASTROINTESTINAL: Abdomen soft, non-tender, nondistended. EXTREMITIES: No edema or joint tenderness. BACK: Nontender without deformity or crepitance. No flank tenderness. NEURO: AOx3. SKIN: No rash or erythema of visible areas Initial Vital Signs Initial Vital Signs: Vital Signs Temperature 99.6 F 09/28/21 14:55 Pulse Rate 104 H 09/28/21 14:55 Respiratory Rate 20 09/28/21 14:55 Blood Pressure 111/66 09/28/21 14:55 Pulse Oximetry 98 09/28/21 14:55 <Ever Garrison MD - Last Filed: 09/29/21 07:28> Initial Vital Signs Initial Vital Signs: Vital Signs Temperature 99.6 F 09/28/21 14:55 Pulse Rate 104 H 09/28/21 14:55 Respiratory Rate 20 09/28/21 14:55 Blood Pressure 111/66 09/28/21 14:55 Pulse Oximetry 98 09/28/21 14:55 Course <Oscar Ding PA-C - Last Filed: 09/28/21 19:38> Course Course Narrative: COVID swab, CT chest abdomen pelvis, chest x-ray, D-dimer, procalcitonin, troponin, CRP, CBC, CMP, lactate, LDH, and BNP ordered Orders Ordered: Discontinued Medications Albuterol (Albuterol Hfa Mdi 60 Puff/8 Gm Inhaler) 4 puff INH NOW ONE Stop: 09/28/21 16:02 Last Admin: 09/28/21 16:16 Dose: 4 puff Documented by: JARROD Sodium Chloride (Normal Saline 0.9%) 1,000 mls @ 250 mls/hr IV BOLUS ONE Stop: 09/28/21 19:48 Last Admin: 09/28/21 16:00 Dose: 250 mls/hr Documented by: CHARLES Ketorolac Tromethamine (Ketorolac 30 Mg/Ml Vial) 15 mg IV NOW ONE Stop: 09/28/21 15:51 Last Admin: 09/28/21 16:00 Dose: 15 mg Documented by: CHARLES Ondansetron HCl (Ondansetron 4 Mg/2 Ml Inj) 4 mg IV NOW ONE Stop: 09/28/21 15:50 Last Admin: 09/28/21 16:00 Dose: 4 mg Documented by: CHARLES Vital Signs Vital signs: Vital Signs - 8 hr 09/28/21 14:55 09/28/21 15:51 09/28/21 16:00 Temperature 99.6 F Pulse Rate 104 H 96 H 94 H Respiratory Rate 20 Blood Pressure 111/66 118/79 Pulse Oximetry 98 97 96 09/28/21 16:18 09/28/21 16:30 09/28/21 17:00 Temperature Pulse Rate 104 H 97 H 101 H Respiratory Rate 18 Blood Pressure 119/70 123/71 Pulse Oximetry 98 99 95 <Ever Garrison MD - Last Filed: 09/29/21 07:28> Orders Ordered: Discontinued Medications Albuterol (Albuterol Hfa Mdi 60 Puff/8 Gm Inhaler) 4 puff INH NOW ONE Stop: 09/28/21 16:02 Last Admin: 09/28/21 16:16 Dose: 4 puff Documented by: JARROD Sodium Chloride (Normal Saline 0.9%) 1,000 mls @ 250 mls/hr IV BOLUS ONE Stop: 09/28/21 19:48 Last Admin: 09/28/21 16:00 Dose: 250 mls/hr Documented by: CHARLES Ketorolac Tromethamine (Ketorolac 30 Mg/Ml Vial) 15 mg IV NOW ONE Stop: 09/28/21 15:51 Last Admin: 09/28/21 16:00 Dose: 15 mg Documented by: CHARLES Ondansetron HCl (Ondansetron 4 Mg/2 Ml Inj) 4 mg IV NOW ONE Stop: 09/28/21 15:50 Last Admin: 09/28/21 16:00 Dose: 4 mg Documented by: CHARLES Vital Signs Vital signs: Vital Signs - 8 hr 09/28/21 14:55 09/28/21 15:51 09/28/21 16:00 Temperature 99.6 F Pulse Rate 104 H 96 H 94 H Respiratory Rate 20 Blood Pressure 111/66 118/79 Pulse Oximetry 98 97 96 09/28/21 16:18 09/28/21 16:30 09/28/21 17:00 Temperature Pulse Rate 104 H 97 H 101 H Respiratory Rate 18 Blood Pressure 119/70 123/71 Pulse Oximetry 98 99 95 MDM - URI/Sore Throat <Oscar Ding PA-C - Last Filed: 09/28/21 19:38> Lab Data Result diagrams: 09/28/21 15:45 09/28/21 15:45 Labs: Lab Results 09/28/21 09/28/21 09/28/21 Range/Units 15:02 15:45 15:45 WBC 5.0 (4.5-11.0) X10^3/uL RBC 4.07 (4.0-5.2) X10^6/uL Hgb 11.4 L (12.0-16.0) g/dL Hct 34.5 L (36-46) % MCV 84.8 (80-100) fL MCH 28.1 (26-34) PG MCHC 33.2 (30-36) % RDW 13.4 (11.6-14.8) % Plt Count 230 (150-400) X10^3/uL Neut % (Auto) 73.7 (50-75) % Lymph % (Auto) 12.0 L (25-40) % [place] % (Auto) 12.4 (3-14) % Eos % (Auto) 1.5 L (2-4) % Baso % (Auto) 0.4 (0-2) % Neut # (Auto) 3700 (7962-3749) /uL Lymph # (Auto) 600 L (4773-9284) /uL [place] # (Auto) 600 (0-900) /uL Eos # (Auto) 100 (0-450) /uL Baso # (Auto) 0 (0-100) /uL D-Dimer < 200 (<230) ng/mL Sodium (137-145) mmol/L Potassium (3.4-5.1) mmol/L Chloride (98-107) mmol/L Carbon Dioxide (22-32) mmol/L BUN (7-17) mg/dL Creatinine (0.52-1.04) mg/dL Estimated GFR (>60) mL/min BUN/Creatinine Ratio (6-22) Glucose (70-100) mg/dL Lactate (0.7-2.1) mmol/L Calcium (8.4-10.2) mg/dL Ferritin (6-137) ng/mL Total Bilirubin (0.2-1.3) mg/dL AST (14-36) IU/L ALT (<35) IU/L Alkaline Phosphatase (38-126) U/L Lactate Dehydrogenase (313-618) U/L Total Creatine Kinase (30-135) U/L CK-MB (CK-2) CK-MB (CK-2) Rel Index Troponin I (0.01-0.034) ng/mL C-Reactive Protein (<1.0) mg/dL NT-Pro-B Natriuret Pep (<125) pg/mL Total Protein (6.3-8.2) g/dL Albumin (3.5-5.0) g/dL Globulin (1.7-4.1) g/dL Albumin/Globulin Ratio (1.0-2.8) Procalcitonin (<0.5) ng/mL SARS-CoV-2 (PCR) Positive H (Negative) 09/28/21 09/28/21 09/28/21 Range/Units 15:45 15:45 15:45 WBC (4.5-11.0) X10^3/uL RBC (4.0-5.2) X10^6/uL Hgb (12.0-16.0) g/dL Hct (36-46) % MCV (80-100) fL MCH (26-34) PG MCHC (30-36) % RDW (11.6-14.8) % Plt Count (150-400) X10^3/uL Neut % (Auto) (50-75) % Lymph % (Auto) (25-40) % [place] % (Auto) (3-14) % Eos % (Auto) (2-4) % Baso % (Auto) (0-2) % Neut # (Auto) (7227-8452) /uL Lymph # (Auto) (3009-6371) /uL [place] # (Auto) (0-900) /uL Eos # (Auto) (0-450) /uL Baso # (Auto) (0-100) /uL D-Dimer (<230) ng/mL Sodium 136 L (137-145) mmol/L Potassium 3.7 (3.4-5.1) mmol/L Chloride 100 (98-107) mmol/L Carbon Dioxide 27 (22-32) mmol/L BUN 10 (7-17) mg/dL Creatinine 0.50 L (0.52-1.04) mg/dL Estimated GFR > 60.0 (>60) mL/min BUN/Creatinine Ratio 20.0 (6-22) Glucose 93 (70-100) mg/dL Lactate 1.1 (0.7-2.1) mmol/L Calcium 9.2 (8.4-10.2) mg/dL Ferritin 50 (6-137) ng/mL Total Bilirubin 0.1 L (0.2-1.3) mg/dL AST 22 (14-36) IU/L ALT 13 (<35) IU/L Alkaline Phosphatase 58 (38-126) U/L Lactate Dehydrogenase 226 L (313-618) U/L Total Creatine Kinase 30 (30-135) U/L CK-MB (CK-2) TNP CK-MB (CK-2) Rel Index TNP Troponin I < 0.012 (0.01-0.034) ng/mL C-Reactive Protein 6.9 H (<1.0) mg/dL NT-Pro-B Natriuret Pep 201 H (<125) pg/mL Total Protein 6.7 (6.3-8.2) g/dL Albumin 4.1 (3.5-5.0) g/dL Globulin 2.6 (1.7-4.1) g/dL Albumin/Globulin Ratio 1.6 (1.0-2.8) Procalcitonin 0.10 (<0.5) ng/mL SARS-CoV-2 (PCR) (Negative) Imaging Data Chest x-ray: Radiologist's Impression: PROCEDURE: XR CHEST 2V INDICATIONS: COVID + SOB TECHNIQUE: 2 views of the chest were acquired. COMPARISON: [facility], , CHEST 2 VIEW, 10/15/2011, 13:03. FINDINGS: Surgical changes and devices: None. Lungs and pleura: There is a reticulonodular process which has developed in the right upper lobe, not previously present. Also, a nodular opacity has developed in the medial extreme left lung base. No pleural effusions or pneumothorax. Mediastinum: Mediastinal contours are normal. Heart size is normal. Bones and chest wall: No suspicious bony abnormalities. Soft tissues appear unremarkable. IMPRESSION: Interval development of reticulonodular process in the right upper lobe. Interval development of a nodular opacity in the extreme left lung base medially. Comment: Recommend CT chest with contrast for further evaluation. Dictated by: Geovany Espinosa M.D. on 09/28/2021 at 15:42 Approved by: Geovany Espinosa M.D. on 09/28/2021 at 15:44 CT scan - chest/abdomen/pelvis: Radiologist's Impression: PROCEDURE: CT CHEST ABD PEL W CON INDICATIONS: Abnormality on CXR TECHNIQUE: After the administration of intravenous contrast, 5 mm thick sections acquired from the lung apices to the symphysis. 5 mm coronal and sagittal reformats were performed, with additional 7 mm MIP reformats through the lungs. For radiation dose reduction, the following was used: automated exposure control, adjustment of mA and/or kV according to patient size. COMPARISON: [facility], CR, XR CHEST 2V, 09/28/2021, 15:05. FINDINGS: Image quality: Excellent. CHEST: Lungs and pleura: Reticular nodular densities are noted in posterior and lateral aspect of right upper lobe with soft tissue density nodules measures up to 3 mm in size in lateral right upper lobe near apex series 3, image 73, 8 mm in size in central right upper lobe series 3, image 92 , 6 mm in size in posterior right upper lobe series 3, image 93, and 8 mm in size in posterior and inferior aspect of right upper lobe series 3, image 119. Ill-defined ground-glass opacities and airspace opacities are seen scattered in bilateral lower lobes. No pleural effusions or pneumothorax. Central and peripheral airways appear patent . Mild bronchiectasis in right upper lobe and bilateral lower lobes are seen. Mediastinum: Heart size is normal. No pericardial effusion. Enlarged mediastinal and hilar lymph nodes are seen and measures up to 1.1 cm in short axis diameter in right hilar region series 2, image 27. Thoracic aorta and central pulmonary arteries are normal in size. Esophagus is normal in caliber. No hiatal hernia. Chest wall: No axillary or supraclavicular adenopathy by size criteria. Thyroid gland is within normal limits. ABDOMEN: Solid organs: Liver is normal in size and enhancement. Gallbladder is within normal limits.. Biliary system is non dilated. Pancreas enhances normally. Spleen is normal in size and enhancement. No adrenal nodules. Kidneys demonstrate normal size and enhancement, without hydronephrosis. Peritoneum and bowel: Bowel loops demonstrate normal wall thickness and caliber. No free fluid or air. Appendix is visualized and is within normal limits. Mild sigmoid diverticulosis is seen, no CT evidence of acute diverticulitis. Nodes and vessels: No retroperitoneal or mesenteric adenopathy by size criteria. Aorta and inferior vena cava are normal in size. Miscellaneous: No ventral hernias. PELVIS: Genitourinary: Bladder wall thickness is normal. Uterus is within normal limits. Multiple right ovarian cysts are seen measures up to 1.8 x 1.8 cm in size series 2, image 110. There is a slightly lobulated and fairly homogeneously hyperdense structure seen in left adnexa and measures 4 x 4.3 x 3.8 cm in size series 2 image 112 and series 5, image 29 . Miscellaneous: No inguinal hernias or adenopathy. Bones: No suspicious bony lesions. No vertebral body compression fractures. IMPRESSION: 1. Patchy ground-glass opacities and airspace opacity seen in posterior and lateral periphery of bilateral lower lobes more prominent in left lower lobe which likely represent multilobar infiltrates from COVID-19 infection. 2. Reticular nodular densities are noted in posterior and lateral aspect of right upper lobe as described in detail above. Finding may represent early developing infiltrates secondary to COVID-19 infection. Superimposed pulmonary nodule or mass cannot be entirely excluded. Follow-up until resolution is recommended. 3. Mild bronchiectasis in right upper lobe and bilateral lower lobes. No pleural effusion or pneumothorax. 4. Enlarged mediastinal and hilar lymph nodes as above suggestive of reactive inflammatory lymphadenopathy. No abdominal or pelvic lymphadenopathy. 5. 4.3 x 4 x 3.8 cm hyperdense structure in left adnexa as described above. Finding could represent a exophytic large left uterine fibroid, neoplasm of left ovarian origin cannot be excluded. Suggestion of right renal cysts as above. 6. No bowel obstruction or abnormal bowel wall thickening. Normal appendix. Colonic diverticulosis without evidence of acute diverticulitis. No free fluid or free air. Dictated by: Adrián Toro M.D. on 09/28/2021 at 17:58 Approved by: Adrián Toro M.D. on 09/28/2021 at 18:[address] [facility] Narrative Medical decision making narrative: Patient is a 46-year-old female with a history of asthma presenting to the emergency department today for evaluation of worsening cold symptoms. To consider COVID-19 versus pneumonia versus PE. Chest x-ray and CT of the abdomen, pelvis, chest showed signs of COVID pneumonia. Additionally, hyperdense structure noted the left adnexa which could be uterine fibroid but neoplasm of left ovarian origin cannot be excluded. Discussed lab results and imaging results with patient. At this time patient feels comfortable being discharged home with strict follow-up discussed. Additionally, strict return precautions were discussed with the patient prior to discharge. <Ever Garrison MD - Last Filed: 09/29/21 07:28> Lab Data Labs: Lab Results 09/28/21 09/28/21 09/28/21 Range/Units 15:02 15:45 15:45 WBC 5.0 (4.5-11.0) X10^3/uL RBC 4.07 (4.0-5.2) X10^6/uL Hgb 11.4 L (12.0-16.0) g/dL Hct 34.5 L (36-46) % MCV 84.8 (80-100) fL MCH 28.1 (26-34) PG MCHC 33.2 (30-36) % RDW 13.4 (11.6-14.8) % Plt Count 230 (150-400) X10^3/uL Neut % (Auto) 73.7 (50-75) % Lymph % (Auto) 12.0 L (25-40) % [place] % (Auto) 12.4 (3-14) % Eos % (Auto) 1.5 L (2-4) % Baso % (Auto) 0.4 (0-2) % Neut # (Auto) 3700 (6985-5659) /uL Lymph # (Auto) 600 L (9892-7708) /uL [place] # (Auto) 600 (0-900) /uL Eos # (Auto) 100 (0-450) /uL Baso # (Auto) 0 (0-100) /uL D-Dimer < 200 (<230) ng/mL Sodium (137-145) mmol/L Potassium (3.4-5.1) mmol/L Chloride (98-107) mmol/L Carbon Dioxide (22-32) mmol/L BUN (7-17) mg/dL Creatinine (0.52-1.04) mg/dL Estimated GFR (>60) mL/min BUN/Creatinine Ratio (6-22) Glucose (70-100) mg/dL Lactate (0.7-2.1) mmol/L Calcium (8.4-10.2) mg/dL Ferritin (6-137) ng/mL Total Bilirubin (0.2-1.3) mg/dL AST (14-36) IU/L ALT (<35) IU/L Alkaline Phosphatase (38-126) U/L Lactate Dehydrogenase (313-618) U/L Total Creatine Kinase (30-135) U/L CK-MB (CK-2) CK-MB (CK-2) Rel Index Troponin I (0.01-0.034) ng/mL C-Reactive Protein (<1.0) mg/dL NT-Pro-B Natriuret Pep (<125) pg/mL Total Protein (6.3-8.2) g/dL Albumin (3.5-5.0) g/dL Globulin (1.7-4.1) g/dL Albumin/Globulin Ratio (1.0-2.8) Procalcitonin (<0.5) ng/mL SARS-CoV-2 (PCR) Positive H (Negative) 09/28/21 09/28/21 09/28/21 Range/Units 15:45 15:45 15:45 WBC (4.5-11.0) X10^3/uL RBC (4.0-5.2) X10^6/uL Hgb (12.0-16.0) g/dL Hct (36-46) % MCV (80-100) fL MCH (26-34) PG MCHC (30-36) % RDW (11.6-14.8) % Plt Count (150-400) X10^3/uL Neut % (Auto) (50-75) % Lymph % (Auto) (25-40) % [place] % (Auto) (3-14) % Eos % (Auto) (2-4) % Baso % (Auto) (0-2) % Neut # (Auto) (5201-8032) /uL Lymph # (Auto) (0822-8706) /uL [place] # (Auto) (0-900) /uL Eos # (Auto) (0-450) /uL Baso # (Auto) (0-100) /uL D-Dimer (<230) ng/mL Sodium 136 L (137-145) mmol/L Potassium 3.7 (3.4-5.1) mmol/L Chloride 100 (98-107) mmol/L Carbon Dioxide 27 (22-32) mmol/L BUN 10 (7-17) mg/dL Creatinine 0.50 L (0.52-1.04) mg/dL Estimated GFR > 60.0 (>60) mL/min BUN/Creatinine Ratio 20.0 (6-22) Glucose 93 (70-100) mg/dL Lactate 1.1 (0.7-2.1) mmol/L Calcium 9.2 (8.4-10.2) mg/dL Ferritin 50 (6-137) ng/mL Total Bilirubin 0.1 L (0.2-1.3) mg/dL AST 22 (14-36) IU/L ALT 13 (<35) IU/L Alkaline Phosphatase 58 (38-126) U/L Lactate Dehydrogenase 226 L (313-618) U/L Total Creatine Kinase 30 (30-135) U/L CK-MB (CK-2) TNP CK-MB (CK-2) Rel Index TNP Troponin I < 0.012 (0.01-0.034) ng/mL C-Reactive Protein 6.9 H (<1.0) mg/dL NT-Pro-B Natriuret Pep 201 H (<125) pg/mL Total Protein 6.7 (6.3-8.2) g/dL Albumin 4.1 (3.5-5.0) g/dL Globulin 2.6 (1.7-4.1) g/dL Albumin/Globulin Ratio 1.6 (1.0-2.8) Procalcitonin 0.10 (<0.5) ng/mL SARS-CoV-2 (PCR) (Negative) Discharge Plan Departure Patient Disposition: Home Clinical Impression: COVID-19, Atypical pneumonia Instructions: DI for Atypical Pneumonia, Coronavirus Disease 2019 Activity Restrictions/Additional Instructions: *You have been diagnosed with atypical pneumonia, COVID-19 *What to do: *Please continue to take your regular medications as directed. [Z] New medication prescriptions sent to your pharmacy: [facility] [ ] New medication written as a paper prescription [ ] No new medications given *Please follow up with your primary care provider in the next 24-48 hours, call for an appointment. Let them know you were seen in the Emergency Department and that we ask that you be seen in follow up. We will electronically transmit a record of today's note if your PCP is in our system. *Please follow-up with OBGYN for the earliest available appointment as CT in the emergency department did find a 4.3 x 4 x 3.8 cm structure in the left adnexa. *If you do not have a primary care provider please contact the [facility] Resource line at [phone]. They will ask some questions about your medical history and help get you set up with a doctor in the community. *Return to Emergency Department if you should have any new, worsening or concerning symptoms, such as fever greater than 101 F, shaking chills, worsening chest pain, worsening shortness of breath, persistent vomiting or other bothersome symptoms. Prescriptions: New ondansetron HCl [Zofran] 4 mg tablet 4 mg PO Q8H PRN (Reason: nausea and vomiting) Qty: 30 RF: 0 No Action cyclobenzaprine 5 mg tablet 5 mg PO TID PRN (Reason: muscle spasm) Qty: 30 RF: 3 clobetasol 0.05 % cream 1 applictn TOP DAILY PRNRF: 0 nystatin 100,000 unit/mL suspension 5 ml PO BID 28 Days Qty: 280 RF: 2 budesonide-formoterol [Symbicort] 160-4.5 mcg/actuation HFA aerosol inhaler 2 puff inhalation BID Qty: 10.2 RF: 11 albuterol sulfate [Ventolin HFA] 90 mcg/actuation HFA aerosol inhaler 2 puff inhalation Q4-6H PRN (Reason: shortness of breath or wheezing) Qty: 36 RF: 5 montelukast 10 mg tablet 10 mg PO BEDTIME Qty: 30 RF: 5 loratadine [Claritin] 10 mg tablet 10 mg PO DAILY RF: 0 zolpidem [Ambien] 5 mg tablet 5 mg PO BEDTIME PRN (Reason: insomnia) Qty: 30 RF: 0 Referrals: Dao Lopez ARNP [Primary Care Provider] -
[2021-09-28 17:00] VITALS: BP 123/71; PULSE 101; O2SAT 95
[2021-09-28 17:08] LABS: Add Manual Diff / Slide Review NO; Basophils Absolute Auto 0 /uL (0-100); Basophils Percent Auto 0.4 % (0-2); Eosinophils Absolute Auto 100 /uL (0-450); Eosinophils Percent Auto 1.5 % (2-4); Hematocrit 34.5 % (36-46); Hemoglobin 11.4 g/dL (12.0-16.0); Lymphocytes Absolute Auto 600 /uL (1100-4500); Mean Corpuscular HGB Conc 33.2 % (30-36); Mean Corpuscular Hemoglobin 28.1 PG (26-34); Mean Corpuscular Volume 84.8 fL (80-100); Monocytes Absolute Auto 600 /uL (0-900); Monocytes Percent Auto 12.4 % (3-14); Neutrophils Absolute Auto 3700 /uL (1500-7000); Neutrophils Percent Auto 73.7 % (50-75); Platelet Count 230 X10^3/uL (150-400); Red Blood Cell Count 4.07 X10^6/uL (4.0-5.2); Red Cell Distribution Width 13.4 % (11.6-14.8)
[2021-09-28 17:21] LABS: Lactate (Lactic Acid) 1.1 mmol/L (0.7-2.1)
[2021-09-28 17:22] LABS: Alanine Aminotransferase 13 IU/L (<35); Albumin 4.1 g/dL (3.5-5.0); Albumin Globulin Ratio 1.6 (1.0-2.8); Alkaline Phosphatase 58 U/L (38-126); Aspartate Aminotransferase 22 IU/L (14-36); Bilirubin Total 0.1 mg/dL (0.2-1.3); Blood Urea Nitrogen 10 mg/dL (7-17); Calcium 9.2 mg/dL (8.4-10.2); Carbon Dioxide 27 mmol/L (22-32); Chloride 100 mmol/L (98-107); Creatine Kinase 30 U/L (30-135); Estimated Glomerular Filt Rate > 60.0 mL/min (>60); Globulin 2.6 g/dL (1.7-4.1); Glucose 93 mg/dL (70-100); HEMOLYSIS < 15 (0-50); Potassium 3.7 mmol/L (3.4-5.1); Sodium 136 mmol/L (137-145); Total Protein 6.7 g/dL (6.3-8.2)
[2021-09-28 17:23] LABS: D Dimer < 200 ng/mL (<230)
[2021-09-28 17:26] LABS: C-Reactive Protein Quant 6.9 mg/dL (<1.0); Lactate Dehydrogenase 226 U/L (313-618)
[2021-09-28 17:32] LABS: NT-proBNP (BNP-Adult 18+) 201 pg/mL (<125)
[2021-09-28 17:34] LABS: Troponin I < 0.012 ng/mL (0.01-0.034)
[2021-09-28 17:58] LABS: Ferritin 50 ng/mL (6-137)
== END 2021-09-28 19:02 | disposition home or self-care (01) ==
PROVIDERS: Emergency Medicine; Emergency Provider Physician Assistant; PCP Registered Nurse Diabetes Educator
DX: U07.1 COVID-19 (principal); J12.82 Pneumonia due to coronavirus disease 2019
CPT/HCPCS: 36415; 71046; 71260; 74177; 80053; 82550; 82728; 83605; 83615; 83880; 84145; 84484; 85025; 85379; 86140; 87635; 94640; 96374; 96375; 99284; C9803; A9270; J1885; J2405

== ENCOUNTER → 2021-10-25 10:42 | Outpatient (CLI) | payer OTHER, MEDICAID, SELFPAY ==
--- NOTE | 2021-10-25 10:44 | DI.US.S_ITS ---
PROCEDURE: US PELVIC COMPLETE INDICATIONS: LEFT ADNEXAL MASS ON CT TECHNIQUE: Real-time scanning was performed of the pelvic organs, with image documentation. Additional endovaginal scanning was necessary due to incomplete visualization of the adnexal and endometrial structures by transabdominal scanning. COMPARISON: [facility], CT, CT CHEST ABD PEL W CON, 09/28/2021, 17:39. FINDINGS: Uterus: Uterus is anteverted and normal in size at 8.6 x 4.5 x 8.3 cm. The endometrium measures 8-9 mm combined thickness. There is an exophytic fibroid seen on the left that measures 4.4 x 4.3 x 3.7 cm. Ovaries: The right ovary measures 3.1 x 2.5 x 2.8 cm and demonstrates a simple appearing cystic follicle that measures up to 2.7 cm, which is considered to be within physiologic limits. The left ovary measures 2.7 x 1.4 x 2.1 cm. The ovaries have a normal sonographic appearance. No adnexal masses are seen. Other: No pathologic free abdominal or pelvic fluid. IMPRESSION: There is a 4.4 cm exophytic fibroid seen on the left, which corresponds to the enhancing adnexal mass seen on the recent prior CT examination. 2.7 cm cystic follicle seen involving the right ovary, which is considered to be within physiologic limits. We strive to produce accurate, complete, and clear reports of imaging services. To assist us in improving patient care, this report was composed using standard report templates and voice recognition software. Therefore, it may contain abnormal punctuation, insertions and/or omissions. Occasional wrong-word or sound-alike substitutions may occur. Though we review the report and make efforts to correct it, we do recommend that the report be read carefully in proper context to recognize any text inaccuracies. Dictated by: Rk Stinson M.D. on 10/25/2021 at 10:58 Approved by: Rk Stinson M.D. on 10/25/2021 at 11:02
== END ==
PROVIDERS: PCP Registered Nurse Diabetes Educator; Referring Provider Obstetrics & Gynecology; Visit Provider Obstetrics & Gynecology
DX: R93.89 Abnormal findings on diagnostic imaging of other specified body structures (principal); N94.89 Other specified conditions associated with female genital organs and menstrual cycle
CPT/HCPCS: 76830; 76856

== ENCOUNTER → 2022-06-28 15:56 | Outpatient (CLI) | payer OTHER, MEDICAID, SELFPAY ==
[2022-06-28 17:11] LABS: COVID19 -Nasal RAPID Negative (Negative)
[2022-06-28 18:29] LABS: Alanine Aminotransferase 22 IU/L (<35); Albumin 4.3 g/dL (3.5-5.0); Albumin Globulin Ratio 1.7 (1.0-2.8); Alkaline Phosphatase 41 U/L (38-126); Aspartate Aminotransferase 62 IU/L (14-36); Bilirubin Total 0.5 mg/dL (0.2-1.3); Bilirubin Unconjugated 0.6 mg/dL (0.0-1.1); Globulin 2.6 g/dL (1.7-4.1); HEMOLYSIS < 15 (0-50); Total Protein 6.9 g/dL (6.3-8.2)
== END ==
PROVIDERS: Obstetrics & Gynecology; PCP Registered Nurse Diabetes Educator; Referring Provider Registered Nurse Diabetes Educator; Visit Provider Registered Nurse Diabetes Educator
DX: Z01.812 Encounter for preprocedural laboratory examination (principal); Z20.822 Contact with and (suspected) exposure to COVID-19; Z51.81 Encounter for therapeutic drug level monitoring; B35.1 Tinea unguium
CPT/HCPCS: 36415; 80076; 87635; C9803

== ENCOUNTER 2022-07-01 08:11 | Day surgery (SDC) | payer OTHER, MEDICAID, SELFPAY ==
[2022-06-28 08:10] VITALS: BMI 20.9
[2022-07-01] VITALS (15 sets, daily range): BP systolic 106–128; BP diastolic 57–78; PULSE 73–88; RESP 12–18; TEMP 36.4–37; O2SAT 96–100; BMI 20.9
--- NOTE | 2022-07-01 | PATH_ITS ---
[facility] Accession Number: [id number] No. of containers..01 Tissue . 01 Material submitted: . uterus - UTERUS, BILATERAL FALLOPIAN TUBES . 01 Clinical history: . LAPORSCOPIC SUPRACERVICAL HYSTERECTOMY . 01 Diagnosis: Uterus and Right and Left Fallopian Tubes, Laparoscopic Supracervical Hysterectomy and Bilateral Salpingectomy: Endometrium: Late secretory phase endometrium. Myometrium: Leiomyomata without significant atypia. Fallopian tubes: Multiple benign paratubal cysts. [facility] 07/03/2022 1709 Local . 01 Electronically signed: . Nunu Santiago MD, Pathologist NPI- [id number] . 01 Gross description: . Received in formalin labeled with the patient's name and uterus, bilateral fallopian tubes consists of 135 grams of fragmented uterus aggregating to 9.2 x 9.2 x 6.5 cm, along with an attached fallopian tube (5.2 x 0.8 cm) and detached fallopian tube (3.2 x 0.7 cm). No cervix is identified. Due to the fragmented nature of the specimen, orientation cannot be provided. The uterine serosa is berrios and smooth with no areas of hemorrhage. The possible endometrium is berrios and velvety, and averages 0.3 cm thick. The myometrium is berrios and trabecular, and the maximum thickness cannot be determined. Two white, whorled, rubbery nodules are identified ranging from 2.4 to 3.3 cm in greatest dimension. . The attached fallopian tube has smooth congested serosa with multiple cystic structures near the fimbriated end measuring up to 0.7 cm in greatest dimension. Serial sectioning reveals unremarkable stellate lumen. . The detached fallopian tube has smooth congested serosa with a large cystic structure located near the fimbriated end measuring 1.9 cm in greatest dimension, and is filled with clear serous fluid. Serial sectioning reveals an unremarkable stellate lumen. Rag Shredder sections are submitted as follows: . A1-A3: Rag Shredder endometrium. A4: Rag Shredder nodules. A5: Rag Shredder attached fallopian tube to include entire fimbriae and loan servicing representative cross-section. A6: Rag Shredder detached fallopian tube to include entire fimbriae and loan servicing representative cross-sections. ([id number]) /MRV 07/02/2022 1229 Local . 01 Pathologist provided ICD-10: N92.0 . 01 CPT . 044843 Specimen Comment: A courtesy copy of this report has been sent to [phone] Performed at: 01 [facility] [address] [place] [address] [address] [facility], [place], [place] [id number] MD Xavier Cameron MD Phone: [phone]
[2022-07-01] MEDS: BUPIVACAINE 0.5% W/ EPI (PF) 30 ML VIAL INJ (08:36)
[2022-07-01] MEDS: LACTATED RINGERS 1,000 ML 100 ML IV ×3 (08:45→22:38)
--- NOTE | 2022-07-01 09:04 | PM.PREOP ---
Pre-operative Note COVID-19 COVID-19 status: Negative Result date/Date tested (Pos, Neg/Pending): 06/28/22 Criteria for continued procedure: Expected advancement of disease process Interval Note History & Physical reviewed/Exam performed by Physician: Yes Changes to H&P: No
[2022-07-01] MEDS: CEFAZOLIN 2 GM/100 ML IV (09:20)
--- NOTE | 2022-07-01 09:49 | SUR.OPER ---
Lithotomy on padded OR bed. Farmers Pad Positioner under torso. Head on pillow, arms padded and tucked at sides. Legs secured in padded yellow fins stirrups.
[2022-07-01] MEDS: ROPIVACAINE 0.2% PF 2 MG/ML 10ML AMP 20 ML INJ (10:11)
--- NOTE | 2022-07-01 10:35 | PM.OP.1 ---
Operative Date/Time/Diagnoses Date of procedure: 07/01/22 Time of procedure: 10:35 Pre-op diagnosis: Menorrhagia from uterine fibroids Post-op diagnosis: same Procedure & Clinicians Procedure: Laparoscopic supracervical hysterectomy with bilateral salpingectomies Same procedure as scheduled: Yes Indications: Menorrhagia from uterine fibroids Surgeon: Hodan Hurtado Lime Supervisor: Tami Santiago Click Yes if Unassisted: No Anesthesia Type: General Operative Notes Findings: Normal ovaries and tubes. Enlarged fibroid uterus. Normal liver edge, normal bowel surface, no endometriosis, adhesions, or internal hernias Closure Type: primary Specimen(s): other (Uterus above the level of the cervix and bilateral fallopian tubes) Applied: catheter (Quinonez) Estimated Blood Loss (mL): 200 Blood products transfused: none Procedure in detail: Patient is brought to the operating room where she underwent general anesthesia and placed in low [facility] stirrups. She was prepped and draped in the usual sterile fashion. A check list was reviewed with the staff in the room prior to beginning of the case. Patient had pulsatile stockings in place and functional. 2 g of Ancef were in prior to beginning of the case.. A Quinonez catheter was placed. A single-tooth tenaculum was placed on the anterior lip of the cervix and the cervix dilated to a #6 Hegar dilator. The uterine manipulator was placed through the cervix into the uterus with the balloon inflated with 3 mL of air. The area of the umbilical incision and the 5 mm right and left lower quadrant incisions were injected with Marcaine. An incision was made with scalpel. The verries needle was placed into the abdomen and confirmed in the appropriate place with withdrawal on a syringe and then free flow of fluid down through the needle. The abdomen was insufflated with CO2. The needle was removed and a 5 mm trocar placed without difficulty. There did not appear to be any damage is placement of the trocar. The right and left lower quadrant incisions were made with the scalpel and the trochars placed without damage to internal structures. The power seal forceps were used to cauterize and cut sequential bites along the mesosalpinx followed by the utero-ovarian and round ligaments on both sides. Sequential bites were taken down the broad ligaments. The uterine arteries were cauterized. An incision was made above the level bladder pushing the bladder away from the cervix. The FERNANDEZ loop was placed around the uterus and the uterus was amputated above the level of the bladder. Bleeding was controlled with the power seal forceps. The spatula monopolar cautery was used to cauterize in the endocervical canal. A supracervical incision was made and an 11 mm port placed. A 15 mm Endo Catch bag was placed in the abdomen. The uterus and tubes were placed in the bag and brought up through the suprapubic port site. The Ashish O was placed. The uterus was hand morselized. The abdomen was reinsufflated and adequate hemostasis was noted. The trochars were removed and the CO2 allowed escape from the abdomen. The fascia layer of the suprapubic site was repaired with 0 Polysorb suture. Skin was closed with 4-0 Monocryl suture at the suprapubic site and the other 3 sites. The patient went to recovery room in good condition. Counts of instruments and sponges were correct. Tami LAKHANI was present throughout the case to assist with holding the camera, retracting, cauterizing and cutting the structures on the right side of the patient, as well as assisting with morselization of the uterus. Complications: none Post-operative Condition: stable Disposition: Acute Care (Overnight observation for control of pain and observe for bleeding) Plan for aftercare: Likely home in a.m. if stable
[2022-07-01] MEDS: HYDROMORPHONE 2 MG INJ IV ×3 (11:11→11:30)
[2022-07-01] MEDS: ONDANSETRON 4 MG/2 ML INJ IV ×3 (11:33→22:37)
--- NOTE | 2022-07-01 11:54 | SUR.PHASEI ---
1154: Pt A&Ox4, VSS, reports pain at tolerable cramping, dressings x 3 c/d/i, #4 scant amt drainage unchanged, and ready to transfer to room. Report given to receiving RN using SBAR with time allowed for questions. Spouse updated on care. Pt transported to room via bed with this RN assist, and all personal belongings. Will transfer care at bedside.
[2022-07-01] MEDS: KETOROLAC 30 MG/ML VIAL IV ×2 (13:06→18:18)
[2022-07-01] MEDS: METOCLOPRAMIDE 10 MG/2 ML INJ 5 MG IV (18:18)
[2022-07-01] MEDS: MORPHINE 2 MG/ML INJ IV (19:50)
[2022-07-01] MEDS: DOCUSATE 100 MG CAPSULE 200 MG PO (21:10)
[2022-07-02] VITALS (45 sets, daily range): BP systolic 63–116; BP diastolic 39–75; PULSE 73–101; RESP 12–17; TEMP 35.9–36.9; O2SAT 97–100
[2022-07-02] MEDS: KETOROLAC 30 MG/ML VIAL IV (00:39)
[2022-07-02] MEDS: MORPHINE 2 MG/ML INJ IV (00:39)
[2022-07-02] MEDS: SODIUM CHLORIDE 0.9% 500 ML 1000 ML IV (02:05)
[2022-07-02 02:20] LABS: Add Manual Diff / Slide Review NO; Basophils Absolute Auto 0 /uL (0-100); Basophils Percent Auto 0.1 % (0-2); Eosinophils Absolute Auto 0 /uL (0-450); Hematocrit 29.9 % (36-46); Hemoglobin 10.1 g/dL (12.0-16.0); Lymphocytes Absolute Auto 1100 /uL (1100-4500); Lymphocytes Percent Auto 8.1 % (25-40); Mean Corpuscular HGB Conc 33.7 % (30-36); Mean Corpuscular Hemoglobin 28.9 PG (26-34); Mean Corpuscular Volume 85.7 fL (80-100); Monocytes Absolute Auto 1100 /uL (0-900); Neutrophils Absolute Auto 11300 /uL (1500-7000); Neutrophils Percent Auto 83.8 % (50-75); Platelet Count 280 X10^3/uL (150-400); Red Blood Cell Count 3.49 X10^6/uL (4.0-5.2); Red Cell Distribution Width 13.2 % (11.6-14.8); White Blood Cell Count 13.5 X10^3/uL (4.5-11.0)
[2022-07-02 02:26] LABS: BUN Creatinine Ratio 21.4 (6-22); Blood Urea Nitrogen 12 mg/dL (7-17); Calcium 8.2 mg/dL (8.4-10.2); Carbon Dioxide 23 mmol/L (22-32); Chloride 100 mmol/L (98-107); Estimated Glomerular Filt Rate > 60 mL/min (>60); Glucose 145 mg/dL (70-100); HEMOLYSIS 16 (0-50); Potassium 4.1 mmol/L (3.4-5.1); Sodium 130 mmol/L (137-145)
[2022-07-02 02:38] LABS: Troponin I < 0.012 ng/mL (0.01-0.034)
[2022-07-02] MEDS: LACTATED RINGERS 1,000 ML 100 ML IV ×3 (02:40→14:22)
[2022-07-02] MEDS: ALBUTEROL INHALER 1 EACH INH ×2 (02:45→14:12)
[2022-07-02] MEDS: LACTATED RINGERS 1,000 ML 1000 ML IV (03:35)
[2022-07-02 04:56] LABS: Add Manual Diff / Slide Review NO; Basophils Absolute Auto 0 /uL (0-100); Eosinophils Absolute Auto 0 /uL (0-450); Eosinophils Percent Auto 0.1 % (2-4); Hematocrit 25.9 % (36-46); Hemoglobin 8.8 g/dL (12.0-16.0); Lymphocytes Absolute Auto 800 /uL (1100-4500); Lymphocytes Percent Auto 5.7 % (25-40); Mean Corpuscular HGB Conc 33.8 % (30-36); Mean Corpuscular Hemoglobin 28.9 PG (26-34); Mean Corpuscular Volume 85.5 fL (80-100); Monocytes Absolute Auto 1200 /uL (0-900); Monocytes Percent Auto 8.3 % (3-14); Neutrophils Absolute Auto 12100 /uL (1500-7000); Neutrophils Percent Auto 85.9 % (50-75); Platelet Count 242 X10^3/uL (150-400); Red Blood Cell Count 3.03 X10^6/uL (4.0-5.2); White Blood Cell Count 14.1 X10^3/uL (4.5-11.0)
[2022-07-02] MEDS: ONDANSETRON 4 MG/2 ML INJ IV (04:56)
[2022-07-02] MEDS: CALCIUM CARBONATE 500 MG TAB 1000 MG PO (04:57)
[2022-07-02] MEDS: ACETAMINOPHEN 325 MG TABLET 650 MG PO ×3 (05:02→20:08)
[2022-07-02] MEDS: OXYCODONE IR 5 MG TABLET PO ×5 (05:02→22:35)
--- NOTE | 2022-07-02 05:29 | PC.NURSE ---
RAPID RESPONSE EVENT @0150 pt ambulated to bathroom and became flushed, diaphoretic, had increased pain, nausea, and mild confusion. Vitals were BP: 63/44; HR: 73; BS: 145. Rapid response was activated, with 3 staff assist transferred pt back to bed via w/c, and positioned bed in trendelenburg. -Hospitalist Madonna Perales was notified at 0200 and ordered STAT IV fluid bolus 500 mL, labs (CBC, BMP, Trops), and Q15MIN VS for 4 hours. -ProviderHodan was notified at 0226 regarding the change in pt's condition and no new orders were given at this time. @0327 Pt's BP: 89/52; MAP: 64 -Hospitalist Madonna Perales was notified at 0330 and ordered IV fluid bolus 1000 mL -Provider, Hodan Hurtado was notified again at 0334 regarding pt's BP: 89/52 with MAP 64 taken at 0327. Discussed results of labs drawn: H/H: 10.1/29.9 WBC: 13.5 RBC: 3.49 Na+: 130 Ca+: 8.2 No new orders were given at this time and instructed to continue current interventions. Pt currently reports feeling better, is afebrile, tolerating PO food/fluid intake, no nausea, and px controlled improving after tylenol, oxycodone, tums, and IVP zofran. Pt has normal elimination patterns, not vaginal bleeding, and s/p dressings are absent of additional drainage.
--- NOTE | 2022-07-02 07:43 | PC.NURSE ---
Provider Hodan Hurtado is at pt bedside and aware of pt's AM lab values resulted @0425 H/H: 8.8/25.9; WBC: 14.1; RBC: 3.03 No new orders are given at this time and to continue monitoring the pt. with the current interventions in place.
[2022-07-02] MEDS: METOCLOPRAMIDE 10 MG/2 ML INJ 5 MG IV (08:49)
[2022-07-02] MEDS: DOCUSATE 100 MG CAPSULE 200 MG PO ×2 (08:49→20:08)
--- NOTE | 2022-07-02 08:53 | PM.PNPO.1 ---
Subjective Subjective Date Patient Seen: 07/02/22 Time Patient Seen: 07:30 Interval history: Postoperative day 1. Patient with vasovagal drop in blood pressure last night. She received IV fluids. Initial CBC was 29. Unknown CBC prior to procedure. Procedure was done for menorrhagia. Patient states her pain is lower abdomen crampy sensation. She is ?extremely hungry?. Exam Vital Signs (past 8 hours): - 07/02/22 01:55 07/02/22 01:57 07/02/22 02:01 Temperature Pulse Rate 80 73 84 Respiratory Rate Blood Pressure 77/41 L 63/44 L 85/54 L Pulse Oximetry Oxygen Flow Rate 07/02/22 02:03 07/02/22 02:07 07/02/22 02:10 Temperature Pulse Rate 83 76 83 Respiratory Rate Blood Pressure 94/61 97/66 89/48 L Pulse Oximetry Oxygen Flow Rate 07/02/22 02:18 07/02/22 02:33 07/02/22 02:48 Temperature Pulse Rate 82 87 87 Respiratory Rate Blood Pressure 88/60 L 96/63 82/56 L Pulse Oximetry 99 99 99 Oxygen Flow Rate 07/02/22 03:08 07/02/22 03:23 07/02/22 03:25 Temperature Pulse Rate 94 H 92 H 93 H Respiratory Rate 16 17 Blood Pressure 116/60 81/49 L 78/47 L Pulse Oximetry 100 99 99 Oxygen Flow Rate 07/02/22 03:27 07/02/22 03:41 07/02/22 03:56 Temperature 98.1 F Pulse Rate 92 H 91 H 89 Respiratory Rate 16 17 16 Blood Pressure 89/52 L 84/53 L 88/53 L Pulse Oximetry 98 98 98 Oxygen Flow Rate 07/02/22 04:11 07/02/22 04:27 07/02/22 04:42 Temperature Pulse Rate 88 74 92 H Respiratory Rate Blood Pressure 86/56 L 93/59 L 99/60 Pulse Oximetry 99 97 97 Oxygen Flow Rate 07/02/22 05:02 07/02/22 05:12 07/02/22 05:27 Temperature Pulse Rate 93 H 98 H 93 H Respiratory Rate 17 Blood Pressure 102/67 93/59 L 98/56 L Pulse Oximetry 99 98 98 Oxygen Flow Rate 07/02/22 05:42 07/02/22 06:12 07/02/22 06:18 Temperature Pulse Rate 90 88 Respiratory Rate Blood Pressure 96/53 L 79/46 L 76/43 L Pulse Oximetry 98 97 99 Oxygen Flow Rate 07/02/22 06:20 07/02/22 07:58 07/02/22 08:33 Temperature 98.1 F Pulse Rate 92 H 88 101 H Respiratory Rate 16 17 Blood Pressure 87/60 L 93/39 L 107/74 Pulse Oximetry 99 99 Oxygen Flow Rate 0 Oxygen Delivery Method Room Air Oxygen Flow Rate 0 Narrative Exam Narrative: On examination the patient's abdomen is soft with no tenderness in the upper abdomen but tenderness in the lower abdomen. Her incisions had some initial blood but no active bleeding. No significant vaginal bleeding. Objective Labs Result Diagrams: 07/02/22 04:25 07/02/22 02:05 Labs: Laboratory Results - last 24 hr 07/02/22 07/02/22 07/02/22 02:05 02:05 04:25 WBC 13.5 H 14.1 H RBC 3.49 L 3.03 L Hgb 10.1 L 8.8 L Hct 29.9 L 25.9 L MCV 85.7 85.5 MCH 28.9 28.9 MCHC 33.7 33.8 RDW 13.2 13.0 Plt Count 280 242 Neut % (Auto) 83.8 H 85.9 H Lymph % (Auto) 8.1 L 5.7 L [place] % (Auto) 8.0 8.3 Eos % (Auto) 0.0 L 0.1 L Baso % (Auto) 0.1 0.0 Neut # (Auto) 90757 H 43053 H Lymph # (Auto) 1100 800 L [place] # (Auto) 1100 H 1200 H Eos # (Auto) 0 0 Baso # (Auto) 0 0 Sodium 130 L Potassium 4.1 Chloride 100 Carbon Dioxide 23 BUN 12 Creatinine 0.56 Estimated GFR > 60 BUN/Creatinine Ratio 21.4 Glucose 145 H Calcium 8.2 L Troponin I < 0.012 PFSH Medical History Adjustment disorder with anxiety Asthma Chronic mid back pain Esophageal polyp Moderate persistent asthma Surgical History History of third molar tooth extraction History of toe surgery Social History household members: significant other Smoking Status: Never smoker alcohol intake: current Assessment & Plan Post-op Assessment and plan (1) Acute blood loss as cause of postoperative anemia: Postoperative Procedures: Procedures Operation Date: 07/01/22 09:45 Actual Procedure Side Surgeon p Laparoscopic Supracervical Hysterectomy w. bilateral salpingectomies Hodan Hurtado MD Postoperative day: 1 Postoperative status: anemia Postoperative plan: see orders Postoperative plan narrative: Discussed likely some internal bleeding after the surgery. Discussed options or of monitoring verses returning to the operating room. Patient states she was so hungry that she at this time would prefer to eat breakfast and then be NPO to see how she does later today. Repeat CBC at noon. Decision after return of the blood test and how the patient is doing. Time Spent With Patient Time with patient: less than 15 minutes
[2022-07-02 13:16] LABS: Add Manual Diff / Slide Review NO; Basophils Absolute Auto 0 /uL (0-100); Basophils Percent Auto 0.4 % (0-2); Eosinophils Absolute Auto 0 /uL (0-450); Eosinophils Percent Auto 0.5 % (2-4); Hematocrit 25.6 % (36-46); Hemoglobin 8.7 g/dL (12.0-16.0); Lymphocytes Absolute Auto 1400 /uL (1100-4500); Lymphocytes Percent Auto 18.8 % (25-40); Mean Corpuscular HGB Conc 33.9 % (30-36); Mean Corpuscular Volume 85.5 fL (80-100); Monocytes Absolute Auto 700 /uL (0-900); Monocytes Percent Auto 9.6 % (3-14); Neutrophils Absolute Auto 5300 /uL (1500-7000); Neutrophils Percent Auto 70.7 % (50-75); Platelet Count 247 X10^3/uL (150-400); White Blood Cell Count 7.4 X10^3/uL (4.5-11.0)
--- NOTE | 2022-07-02 13:43 | PM.PNPO.1 ---
Subjective Subjective Date Patient Seen: 07/02/22 Time Patient Seen: 13:43 Interval history: Postoperative laparoscopic supracervical hysterectomy with likely intra-abdominal bleeding postoperative. Patient denies nausea. She does have pain when she moves. She is passing gas. Exam Vital Signs (past 8 hours): - 07/02/22 06:12 07/02/22 06:18 07/02/22 06:20 Temperature Pulse Rate 90 88 92 H Respiratory Rate 16 Blood Pressure 79/46 L 76/43 L 87/60 L Pulse Oximetry 97 99 99 Oxygen Flow Rate 07/02/22 07:58 07/02/22 08:33 07/02/22 09:30 Temperature 98.1 F Pulse Rate 88 101 H 96 H Respiratory Rate 17 Blood Pressure 93/39 L 107/74 89/55 L Pulse Oximetry 99 99 Oxygen Flow Rate 0 0 07/02/22 09:00 07/02/22 08:30 07/02/22 08:00 Temperature Pulse Rate 95 H 92 H Respiratory Rate Blood Pressure 90/56 L 101/75 97/62 Pulse Oximetry 100 100 99 Oxygen Flow Rate 0 0 0 07/02/22 07:30 07/02/22 10:00 07/02/22 10:30 Temperature 97.9 F 97.2 F L Pulse Rate 86 99 H 96 H Respiratory Rate Blood Pressure 93/58 L 84/46 L 80/55 L Pulse Oximetry 99 97 97 Oxygen Flow Rate 0 0 0 07/02/22 11:01 07/02/22 11:44 07/02/22 12:00 Temperature 98.1 F 97.8 F Pulse Rate 94 H 98 H 86 Respiratory Rate Blood Pressure 80/51 L 85/54 L 95/61 Pulse Oximetry 97 98 98 Oxygen Flow Rate 0 0 0 07/02/22 12:31 07/02/22 13:00 07/02/22 13:30 Temperature 97.4 F L 96.7 F L Pulse Rate 85 82 83 Respiratory Rate Blood Pressure 88/58 L 89/56 L 93/64 Pulse Oximetry 99 98 97 Oxygen Flow Rate 0 0 0 Oxygen Delivery Method Room Air Oxygen Flow Rate 0 Objective Labs Result Diagrams: 07/02/22 12:40 07/02/22 02:05 Labs: Laboratory Results - last 24 hr 07/02/22 07/02/22 07/02/22 02:05 02:05 04:25 WBC 13.5 H 14.1 H RBC 3.49 L 3.03 L Hgb 10.1 L 8.8 L Hct 29.9 L 25.9 L MCV 85.7 85.5 MCH 28.9 28.9 MCHC 33.7 33.8 RDW 13.2 13.0 Plt Count 280 242 Neut % (Auto) 83.8 H 85.9 H Lymph % (Auto) 8.1 L 5.7 L [place] % (Auto) 8.0 8.3 Eos % (Auto) 0.0 L 0.1 L Baso % (Auto) 0.1 0.0 Neut # (Auto) 65756 H 41333 H Lymph # (Auto) 1100 800 L [place] # (Auto) 1100 H 1200 H Eos # (Auto) 0 0 Baso # (Auto) 0 0 Sodium 130 L Potassium 4.1 Chloride 100 Carbon Dioxide 23 BUN 12 Creatinine 0.56 Estimated GFR > 60 BUN/Creatinine Ratio 21.4 Glucose 145 H Calcium 8.2 L Troponin I < 0.012 07/02/22 12:40 WBC 7.4 RBC 3.00 L Hgb 8.7 L Hct 25.6 L MCV 85.5 MCH 29.0 MCHC 33.9 RDW 13.0 Plt Count 247 Neut % (Auto) 70.7 Lymph % (Auto) 18.8 L [place] % (Auto) 9.6 Eos % (Auto) 0.5 L Baso % (Auto) 0.4 Neut # (Auto) 5300 Lymph # (Auto) 1400 [place] # (Auto) 700 Eos # (Auto) 0 Baso # (Auto) 0 Sodium Potassium Chloride Carbon Dioxide BUN Creatinine Estimated GFR BUN/Creatinine Ratio Glucose Calcium Troponin I [facility] Medical History Adjustment disorder with anxiety Asthma Chronic mid back pain Esophageal polyp Moderate persistent asthma Surgical History History of third molar tooth extraction History of toe surgery Social History household members: significant other Smoking Status: Never smoker alcohol intake: current Assessment & Plan Post-op Postoperative Procedures: Procedures Operation Date: 07/01/22 09:45 Actual Procedure Side Surgeon p Laparoscopic Supracervical Hysterectomy w. bilateral salpingectomies Hodan Hurtado MD Postoperative day: 1 Postoperative status: anemia Postoperative plan narrative: Patient's hematocrit has remained stable for the last 8 hours. We will continue to monitor her blood count and increase her ambulation. It does not appear she needs to return to the operating room at this time. Hopefully home in a.m.. Time Spent With Patient Time with patient: less than 15 minutes
--- NOTE | 2022-07-02 15:35 | CM.DANOTE ---
Patient is a 47 yo female who was admitted on 07/01/22 for lap hysterectomy. Pt has [employer] for insurance and her PCP is Dao Lopez. EMR was reviewed. Per OBGYN, pt with vasovagal response post surgical intervention hysterectomy and per RN pt may not be medically stable yet to discharge today but if pt remains stable anticipate possible d/c to home tomorrow. Pt resides in [place] with spouse and has supportive family and currently not employed and has support at d/c and pt is tolerating diet and to attempt minimal ambulation towards confirming stable for d/c without vasovagal responses. No anticipated d/c needs at this time. Plan: SW to follow to confirm safe plan of d/c home with family when medically stable and any further identified needs. [facility] [place] Discharge Planning/Care Management Pre-Anesthesia Assessment Start: 06/28/22 08:09 Freq: Status: Active Protocol: Document 06/28/22 08:10 CAB (Rec: 06/28/22 08:20 CAB [id number]) Pre-Anesthesia Assessment Patient Information Reviewed Via Chart Review Comment COVID screen @ 06/28/22 Primary Care Provider Dao Lopez Seen Specialist in Last 12 Months Yes Specialist Seen Banking Management Consulting Manager Primary Language Hungarian Post Partum Nurse Required No Height 165.1 cm Weight 57.153 kg Body Mass Index (BMI) 20.9 Barriers to Learning None Anesthesia Review Requested No Travel Clerk No Smoking Status Never smoker Substance Use Type does not use History of Falling (Recent or History of No ) Patient is completely paralyzed or No completely immobile Mental Status Oriented to own ability Is patient on oxygen? No Hx Sleep Apnea No Currently Taking a Beta Ariana No Anti-Coagulant Therapy No Has a Senior Marketing Manager No Cardiac Testing No Hx Pacemaker/ICD No Pacemaker Rep Required? No Urinary Catheter Present No Hx Urinary Self Catheterization No Diabetes No Patient No Lactating No Received a COVID vaccine? Yes Marital Status Unknown Lives With significant other Patient Discharge Plan Description Return Home Advance Directives? No
--- NOTE | 2022-07-02 19:30 | PM.EVENT ---
Event Note Date Patient Seen: 07/01/22 Time Patient Seen: 01:40 Event Note (Rapid Response, Code, or fall): Rapid Response BEDSIDE CONSULT I was called to the bedside: patient was up to the bathroom became diaphoretic, slightly SOB, hypotensive, pale, lightheaded, slightly disorientated BP 77/41, map 53 HR 80, slightly tachypneic, blood sugar 145. denied CP. Patient has had no bleeding, incision sites look clean dry and intact without drainage or signs of infection, abdomen is soft no increased tenderness or distension, only slight blood with wiping while using the restroom.? Just prior to getting up had a dose of Zofran and 2 mg morphine, BMI of 21, medication likely contributed to vasovagal response. Patient placed in Trendelenburg, NS bolus, CBC CMP and troponin, EKG. EKG NSR with a rate of [address] or T-wave changes. Patient quickly improved, BP 89/48 with a map 71 heart rate 83, alert orientated conversing easily without chest pain or shortness of breath still appears slightly pale.? Advised staff for the patient to use the bedpan through the night.? Vital signs Q 15 minutes x4, Will review labs. Patient stabilized, resting comfortably in bed.? Temp 97.7?, BP 92/54, HR 84, R 16, O2 saturation 97% on room air. I advised RN, to Notify attending Dr. Hurtado. Reviewed patients labs: No baseline labs prior to surgery were available WBC 13.5, with a left shift neutrophils 11,300, mono 1100, H&H stable 10.1/29.9, again no baseline prior to surgery, glucose 145, troponin within normal limits patient's repeat vitals BP 116/60, HR 94, R 16, O2 saturation 100% on room air, patient is afebrile. Advised RN to notify attending regarding results.
[2022-07-02] MEDS: IBUPROFEN 600 MG TABLET PO (22:29)
[2022-07-03] MEDS: ALBUTEROL INHALER 1 EACH INH (01:56)
[2022-07-03 02:00] VITALS: BP 103/72; PULSE 82; RESP 20; TEMP 36.8; O2SAT 99
[2022-07-03 05:15] VITALS: BP 103/64; PULSE 78; RESP 14; TEMP 36.6; O2SAT 100
[2022-07-03 05:40] LABS: Add Manual Diff / Slide Review NO; Basophils Absolute Auto 0 /uL (0-100); Basophils Percent Auto 0.7 % (0-2); Eosinophils Absolute Auto 100 /uL (0-450); Eosinophils Percent Auto 2.6 % (2-4); Hematocrit 24.7 % (36-46); Hemoglobin 8.4 g/dL (12.0-16.0); Lymphocytes Absolute Auto 1500 /uL (1100-4500); Lymphocytes Percent Auto 28.7 % (25-40); Mean Corpuscular HGB Conc 33.9 % (30-36); Mean Corpuscular Hemoglobin 29.2 PG (26-34); Mean Corpuscular Volume 86.2 fL (80-100); Monocytes Absolute Auto 500 /uL (0-900); Monocytes Percent Auto 9.9 % (3-14); Neutrophils Absolute Auto 2900 /uL (1500-7000); Neutrophils Percent Auto 58.1 % (50-75); Platelet Count 218 X10^3/uL (150-400); Red Blood Cell Count 2.87 X10^6/uL (4.0-5.2); Red Cell Distribution Width 13.4 % (11.6-14.8)
[2022-07-03] MEDS: OXYCODONE IR 5 MG TABLET PO ×2 (06:03→10:56)
[2022-07-03] MEDS: IBUPROFEN 600 MG TABLET PO (06:04)
[2022-07-03 08:00] VITALS: BP 100/55; PULSE 87; RESP 17; TEMP 36.3; O2SAT 98
--- NOTE | 2022-07-03 08:37 | PM.DS.1 ---
History of Present Illness History of Present Illness Date Patient Seen: 07/03/22 Time Patient Seen: 08:37 Chief complaint: Laporscopic Supracervical Hysterectomy Narrative: Patient is postoperative day 2. Laparoscopic supracervical hysterectomy with symptomatic postoperative anemia. Discharge Providers Provider Discharge Date: 07/03/22 Primary care physician: MADDI Tabares Discharge provider: Hodan Hurtado MD Summary Hospital Course Discharge Diagnosis: Menorrhagia from uterine fibroids Hospital Course: Patient underwent a laparoscopic supracervical hysterectomy with bilateral salpingectomies on 07/01/2022. Patient had symptomatic postoperative anemia. She was monitored in her hematocrit remained stable. She now is ambulatory. She is urinating well and had a bowel movement. Pain is under control. Status at Discharge Cognitive/behavioral status at discharge: oriented Functional status at discharge: independent ambulation Overall status at discharge: patient is progressing back to baseline Time Spent with Patient Time spent: Less than 30 minutes Exam Vital Signs (past 8 hours): - 07/03/22 02:00 07/03/22 05:15 07/03/22 08:00 Temperature 98.2 F 97.9 F 97.4 F L Pulse Rate 82 78 87 Respiratory Rate 20 14 17 Blood Pressure 103/72 103/64 100/55 L Pulse Oximetry 99 100 98 Oxygen Flow Rate 0 0 0 Oxygen Delivery Method Room Air Oxygen Flow Rate 0 Narrative Exam Narrative: Patient's abdomen is soft, with mild tenderness but no rebound, slightly distended. Extremities without edema and nontender. Objective Labs Result Diagrams: 07/03/22 05:03 07/02/22 02:05 Labs: Laboratory Results - last 24 hr 07/02/22 07/03/22 12:40 05:03 WBC 7.4 5.0 RBC 3.00 L 2.87 L Hgb 8.7 L 8.4 L Hct 25.6 L 24.7 L MCV 85.5 86.2 MCH 29.0 29.2 MCHC 33.9 33.9 RDW 13.0 13.4 Plt Count 247 218 Neut % (Auto) 70.7 58.1 Lymph % (Auto) 18.8 L 28.7 [place] % (Auto) 9.6 9.9 Eos % (Auto) 0.5 L 2.6 Baso % (Auto) 0.4 0.7 Neut # (Auto) 5300 2900 Lymph # (Auto) 1400 1500 [place] # (Auto) 700 500 Eos # (Auto) 0 100 Baso # (Auto) 0 0 PFSH Medical History Adjustment disorder with anxiety Asthma Chronic mid back pain Esophageal polyp Moderate persistent asthma Surgical History History of third molar tooth extraction History of toe surgery Social History household members: significant other Smoking Status: Never smoker alcohol intake: current Discharge Assessment & Plan Assessment and Plan Assessment: Postoperative day 2. Laparoscopic supracervical hysterectomy with bilateral salpingectomies and postoperative symptomatic anemia. Plan of Treatment: Patient feels she is stable enough to go home. Routine precautions reviewed with the patient. Follow-up in 2 weeks. Discharge Plan Discharge Plan Patient Disposition: Home Discharge orders & Medications Discharge Orders: Discharge (Order); Ordered 07/03/22 Ordered By: Hodan Hurtado Prescriptions: New docusate sodium [Sof-Lax] 100 mg capsule 100 mg PO DAILY Qty: 20 0RF ibuprofen 600 mg Tablet 600 mg PO Q8HR Qty: 30 0RF oxycodone 5 mg Tablet 5 mg PO Q4HR PRN (Reason: Pain, Moderate (4-6)) Qty: 30 0RF ferrous sulfate 324 mg (65 mg iron) tablet,delayed release (DR/EC) 324 mg PO DAILY Qty: 30 0RF Continued fluoxetine 40 mg capsule 40 mg PO DAILY Qty: 90 1RF terbinafine HCl 250 mg tablet 250 mg PO DAILY 84 Days Qty: 84 0RF Hold Instructions: awaiting liver panel results Label Comments: Has not yet started Rx Instructions: AFTER 6 WEEKS MUST GET LIVER ENZYMES RECHECKED (LABS HAVE BEEN ORDERED). clobetasol 0.05 % cream 1 applictn TOP DAILY PRN (Reason: Skin Irritation) budesonide-formoterol [Symbicort] 160-4.5 mcg/actuation HFA aerosol inhaler 2 puff inhalation BID Qty: 30.6 1RF montelukast 10 mg tablet 10 mg PO BEDTIME Qty: 90 1RF albuterol sulfate [Ventolin HFA] 90 mcg/actuation HFA aerosol inhaler 2 puff inhalation Q4-6H PRN (Reason: shortness of breath or wheezing) Qty: 36 3RF cyclobenzaprine 5 mg tablet 5 mg PO TID PRN (Reason: muscle spasm) Qty: 30 3RF Rx Instructions: If 1 tab ineffective, may take 2 tabs up to three times daily as needed. nystatin 100,000 unit/mL suspension 5 ml PO BID Rx Instructions: swish and swallow. throat polyps loratadine [Claritin] 10 mg tablet 10 mg PO DAILY zolpidem [Ambien] 5 mg tablet 5 mg PO BEDTIME PRN (Reason: insomnia) Qty: 30 0RF Follow up/Referrals: Jodi Hennessy MD [Physician] - 2 Weeks Dao Lopez ARNP [Primary Care Provider] - Diet/Activity/Treatments Diet: Regular Activity: No restrictions Skin/Wound/Dressing Care Report to your healthcare provider any signs of infection, such as:: chills, fever and increased pain Dressing: Leave Steri-Strips in place can get wet just pat dry. In one-week get wet and rub off Visit Report/Discharge Packet Instructions: DI for Hysterectomy, DI for Laparoscopy Stand Alone Forms: Surgery Discharge Discharge Data Primary Care Provider: Dao Lopez Attending Provider: Hodan Hurtado
--- NOTE | 2022-07-03 12:56 | CM.DPC ---
DCP Discharge Home Per OBGYN, pt had some post op anemia with hypotension and now seems to have pain controlled, ambulating, tolerating her diet, voided independently and stable for d/c home today with no identified barriers to discharge. Per RN, d/c instructions provided and no concerns at this time and taken down to POV. Plan: Patient discharged home today via POV and outpt f/u and no further SW needs at this time. PAN Roberson
== END 2022-07-03 11:08 | disposition home or self-care (01) ==
LOC: OR 08:13 → AC 08:13
PROVIDERS: Nurse Practitioner Family; PCP Registered Nurse Diabetes Educator; Referring Provider Specialist; Visit Provider Specialist
PROC: 0UT94ZL Resection of Uterus, Supracervical, Percutaneous Endoscopic Approach (ICD-10-PCS; CPT 58542; principal; 2022-07-01 09:45)
DX: D25.1 Intramural leiomyoma of uterus (principal); N83.8 Other noninflammatory disorders of ovary, fallopian tube and broad ligament; J45.909 Unspecified asthma, uncomplicated; D50.0 Iron deficiency anemia secondary to blood loss (chronic)
CPT/HCPCS: 58542; 36415; 80048; 81025; 84484; 85025; 93005; 93010; J0690; J1100; J1170; J1885; J2250; J2270; J2405; J2704; J2765; J2795; J3010

== ENCOUNTER → 2022-07-08 15:35 | Outpatient (CLI) | payer OTHER, MEDICAID, SELFPAY ==
[2022-07-01 08:16] VITALS: BMI 20.9
--- NOTE | 2022-07-08 15:36 | DI.US.S_ITS ---
PROCEDURE: US PELVIC LIMITED INDICATIONS: ABDOMINAL WALL SWELLING. RECENT SURGERY. TECHNIQUE: Real-time transabdominal scanning was performed of the lower anterior abdominal/pelvic wall corresponding to the area of concern. COMPARISON: None. FINDINGS: At the right lower abdominal/pelvic wall anteriorly, a complex fluid collection is present at the area of swelling apparent externally. The collection measures 8.6 x 5.4 x 1.3 cm. No definite or substantial hyperemia of the adjacent soft tissues on color Doppler images. The collection is approximately 1 cm deep to the skin surface. IMPRESSION: An 8.6 cm complex fluid collection is present within the soft tissues of the right lower abdominal/pelvic wall. In the setting of recent surgery this most likely represents a hematoma. The presence or absence of infection in the collection cannot be determined by imaging. Results discussed with Dr. Hennessy by Dr. Hernandez at 1624 hours on 07/08/2022. We strive to produce accurate, complete, and clear reports of imaging services. To assist us in improving patient care, this report was composed using standard report templates and voice recognition software. Therefore, it may contain abnormal punctuation, insertions and/or omissions. Occasional wrong-word or sound-alike substitutions may occur. Though we review the report and make efforts to correct it, we do recommend that the report be read carefully in proper context to recognize any text inaccuracies. Dictated by: Guanako Hernandez M.D. on 07/08/2022 at 16:22 Approved by: Guanako Hernandez M.D. on 07/08/2022 at 16:27
== END ==
PROVIDERS: PCP Registered Nurse Diabetes Educator; Referring Provider Obstetrics & Gynecology; Visit Provider Obstetrics & Gynecology
DX: R19.00 Intra-abdominal and pelvic swelling, mass and lump, unspecified site (principal)
CPT/HCPCS: 76857; 85018